=== PATIENT | female | born 1945 | race Caucasian/White ===

== ENCOUNTER 2017-08-27 04:02 | Day surgery (SDC) | payer MEDICAID, MEDICARE ==
[2017-06-17 10:30] VITALS: Wt 53.1 kg
[~2017-08-27 04:02] MED LIST: ACET-2043 PO; ACET500T68 PO; ALB18R INH; ALBU8.5H IH; ARIP2TAB9 PO; ARMO250T5 PO; ASPI-757 PO; BUP100 PO; BUSP15TA69 PO; CEF300 FT; CEF300 PO; CIPR-214 PO; CLIN-75 FT; CLO5 PO; Cefdinir PO; DES100PT PO; DESV50TA PO; DESV50TA9 PO; DIGO125T73 PO; DIGO125T90 PO; DIPH-740 PO; DIPH-741 PO; DOCU-416 PO; DOCU50LI30 FT; FERR325T24 PO; FLUC100T39 PO; FLUC200T56 FT; FLUT16SP19 NS; FLUT16SP20 NS; FURO-45 PO; GUAI-59 PO; HYDR-4225 PO; IPRA15SP7 NS; IPRA3AMP21 IH; LACT PO; LACT-247 FT; LACT-247 PO; LACT-272 PO; LACT1CAP9 PO; LACT1PAC23 PO; LEV500 PO; LEV75 PO; LEVO-85 FT; LEVO-85 PO; LEVO250T55 FT; LEVO75TA68 PO; LEVO75TA73 PO; LEVO88TA45 PO; LORA10CA3 PO; MAGN400C PO; MELO-205 PO; METO-566 PO; METR-1 PO; METR-119 PO; METR-159 PO; METR-160 PO; MODA200T39 PO; MOM PO; MOMR; MULT-839 PO; MULT1CAP59 PO; OMEP40CA48 PO; ONDA4TAB PO; ONDA4TAB9 SL; ONDA4TAB97 PO; OSE75 PO; OXYC-373 PO; OXYC-717 PO; OXYC-857 PO; OXYC-865 PO; OXYC-870 PO; OXYC10TA67 PO; OXYC5TAB38 PO; OXYIR PO; PANT40SU3 FT; PANT40SU3 PO; PANT40TA65 PO; PAR20 PO; PER PO; POLY17PO25 PO; POTA20LI10 FT; POTA20LI10 PO; POTT20 PO; PROM-110 FT; PROM-110 PO; PROM12.556 PO; PROM25SU8 PR; PSE30 PO; RIFA550T PO; RIVA20TA PO; SERT25TA87 PO; SIME80TA49 PO; SIME80TA65 PO; VANC1VIA12 IV; VENL150C61 PO; VENL50TA23 PO; VENL75CA4 PO; VENL75TA98 PO; WARF-1 PO; WARF1TAB56 PO; WARF2.5T62 PO; [UNRECOGNIZED DRUG - CODE] FT; [UNRECOGNIZED DRUG - CODE] VG
[2017-08-27] MEDS ORDERED: PROPOFOL EMUL(*) 10MG/ML 20 ML 40 ML ONE (07:38)
[2017-08-27] MEDS ORDERED: LIDOCAINE MPF 1% 5 ML VIAL ONE (07:38)
[2017-08-27] MEDS ORDERED: LIDOCAINE/SOD BICARB 8.4% SYR ID ONE (08:30)
[2017-08-27] MEDS ORDERED: MIDAZOLAM 2 MG/2 ML VIAL IVP PRN (08:30)
[2017-08-27] MEDS ORDERED: NORMOSOL R SOLN(*) 1000 ML BAG 1,000 ML IV PRN (08:30)
[2017-08-27 08:53] VITALS: BP 109/95
[2017-08-27 10:24] VITALS: BP 113/53
--- NOTE | 2017-08-27 10:34 | Short(Outpt) Discharge Summary ---
Discharge Summary Reason for Hosp/Final Diag: (1) S/P percutaneous endoscopic gastrostomy (PEG) tube placement Status: Chronic Hospital Course & Plan: EGD with balloon dilation of distal esophagus and PEG tube exchange completed without problems. (2) Peptic ulcer disease Status: Chronic Departure Discharge to: Home, Self Care Discharge Instructions Home Meds Active Scripts Rifaximin (XIFAXAN) 550 Mg Tablet, 550 MG PO BID for 90 Days, Prov:MARCO MILLER MD 06/23/17 Multivitamin (TAB-A-DIMA) 1 Each Tablet, 1 EACH PO DAILY, #0 TAB Prov:VIC UREÑA MD 08/21/16 Magnesium Oxide (MAGNESIUM) 400 Mg Capsule, 400 MG PO DAILY, #30 CAPSULE 1 Refill Prov:CATA UREÑA MD 04/24/16 Levothyroxine Sodium (SYNTHROID) 75 Mcg Tablet, 0.075 MG PO QDAY@06, #30 TAB Prov:FREDDIE VOGT MD 04/19/16 Reported Medications Pantoprazole Sodium (PROTONIX) 40 Mg Granpkt.dr, 40 MG PO BID, PACK 06/23/17 Docusate Sodium (COLACE) 100 Mg Capsule, 10 MG PO BID, CAPSULE 05/17/17 Albuterol Sulfate 90 Mcg/Act (PROAIR HFA 90 MCG/ACT) 8.5 Gm Hfa.aer.ad, 1-2 PUFF IH Q2H Y for SHORTNESS OF BREATH, INHALER 05/17/17 Oxycodone Hcl/Acetaminophen (OXYCODONE-ACETAMINOPHEN 5-325) 1 Each Tablet, 1 EACH PO Q4H Y for PAIN, TAB 05/07/17 Ferrous Sulfate (IRON) 325 Mg Tablet, 325 MG PO BID 05/07/17 Hydroxyzine Hcl (HYDROXYZINE HCL) 25 Mg Tablet, 12.5 MG PO BID Y for ITCHING 05/07/17 Magnesium Hydroxide (MILK OF MAGNESIA) 400 Mg/5 Ml Oral.susp, 800 MG PO BID, BOTTLE 05/07/17 Potassium Chloride (POTASSIUM CHLORIDE) 20 Meq/15 Ml Liquid, 20 MEQ PO BID 03/13/17 Acetaminophen (TYLENOL EXTRA STRENGTH) 500 Mg Tablet, 500 MG PO Q4H Y for PAIN, TAB 03/13/17 Simethicone (SIMETHICONE) 80 Mg Tab.chew, 80 MG PO Q6H, TAB.CHEW 03/12/17 Nutritional Supplement (OSMOLITE) 237 Ml Liquid, 1000 ML FT QHS osmolyte 1.5 lona @ 70mL/hr x 12 hours 01/14/17 Fluticasone Prop 50 Mcg Ns (FLONASE 50 MCG NS) 16 Gm [place].susp, 1 SPRAY NS BID , BOT 03/27/16 Diet: Regular Activity: As Tolerated OSEI OLIVEIRA MD Aug 27, 2017 10:34
[2017-08-27 10:45] VITALS: BP 104/67
[2017-08-27 10:56] VITALS: BP 98/64
[2017-08-27 11:23] VITALS: BP 104/64
== END 2017-08-27 12:00 ==
LOC: OR 04:02
PROVIDERS: ATTEND Surgery
DX: K22.2 Esophageal obstruction (principal); K44.9 Diaphragmatic hernia without obstruction or gangrene; K29.70 Gastritis, unspecified, without bleeding
CPT/HCPCS: 43246; 43249; A9270; J2001; J2704

== ENCOUNTER → 2017-09-10 | Outpatient (CLI) | payer MEDICARE ==
[2017-06-17 10:30] VITALS: BMI 18.5
[2017-09-10 10:41] LABS: PLATELET COUNT, AUTOMATED 342 K/uL (150-450)
--- NOTE | 2017-09-10 11:04 | RADIOLOGY IMAGING REPORT ---
FACILITY: [facility] PATIENT NAME: Jane Winkler : 1945 MR: [id number] V: [id number] EXAM DATE: ORDERING PHYSICIAN: LESVIA LARIOS TECHNOLOGIST: Location: [facility] Patient: Jane Winkler : 1945 Visit/Account:[id number] Date of Sevice: 09/10/2017 ABDOMEN AP AND ERECT/DECUB HISTORY: Abdominal pain for two days COMPARISON: CT examination abdomen July 30, 2017 FINDINGS: Mild left basilar atelectasis. Gastric tube is noted Upright view demonstrates no evidence of free air or pneumatosis. Air-fluid levels are noted in the stomach and in nondilated loops of bowel. No acute bony finding. IMPRESSION: 1. Nonspecific bowel gas pattern with air-fluid levels in nondilated loops of bowel. Finding could represent the patient's baseline, ileus or enteritis. No evidence of high-grade obstruction, pneumat osis or free air. Report Dictated By: Shant De Anda MD at 09/10/2017 10:55 AM Report E-Signed By: Shant De Anda MD at 09/10/2017 10:59 AM WSN:[id number]
== END ==
LOC: LAB 10:06
PROVIDERS: ATTEND Family Medicine
DX: R11.2 Nausea with vomiting, unspecified (principal)
CPT/HCPCS: 36415; 74019; 82040; 82247; 82310; 82374; 82435; 82565; 82947; 84075; 84132; 84155; 84295; 84450; 84460; 84520; 85025

== ENCOUNTER → 2017-11-05 | Outpatient (REF) | payer MEDICARE ==
[2017-06-17 10:30] VITALS: BMI 18.5
== END ==
LOC: ZZLCC 20:06
PROVIDERS: ATTEND Family Medicine
DX: R30.9 Painful micturition, unspecified (principal)
CPT/HCPCS: 81001; 87088

== ENCOUNTER → 2017-11-18 | Outpatient (REF) | payer MEDICARE ==
[2017-06-17 10:30] VITALS: BMI 18.5
== END ==
LOC: ZZLCC 11:25
PROVIDERS: ATTEND Family Medicine
DX: N39.0 Urinary tract infection, site not specified (principal)
CPT/HCPCS: 81001; 87088

== ENCOUNTER 2017-11-20 12:47 | Emergency (ER) | payer MEDICARE ==
[2017-06-17 10:30] VITALS: Wt 53.2 kg
--- NOTE | 2017-11-20 13:06 | ER Report ---
History and Physical Time Seen By MD: 13:04 HPI/ROS CHIEF COMPLAINT: Tube dislodged HISTORY OF PRESENT ILLNESS: 71-year-old female history of G-tube placement for feeding purposes and is under concerned that the tube had displaced here for emergent evaluation no pain or discomfort REVIEW OF SYSTEMS: Respiratory: No cough, no dyspnea. Cardiovascular: No chest pain, no palpitations. Gastrointestinal: No vomiting, no abdominal pain. Musculoskeletal: No back pain. Remainder of the 14 system rev: Yes Allergies: Coded Allergies: propoxyphene (Verified Allergy, Mild, 06/16/17) Penicillins (Verified Allergy, Unknown, 06/16/17) had ceftriaxone in the past w/o problems Sulfa (Sulfonamide Antibiotics) (Verified Allergy, Unknown, 06/16/17) codeine (Verified Allergy, Unknown, 06/16/17) tetracycline (Verified Allergy, Unknown, 06/16/17) HAS TAKEN TIGECYCLINE IN THE PAST W/O PROBLEMS Home Meds Active Scripts Multivitamin (TAB-A-DIMA) 1 Each Tablet, 1 EACH PO DAILY, #0 TAB Prov:VIC UREÑA MD 08/21/16 Magnesium Oxide (MAGNESIUM) 400 Mg Capsule, 400 MG PO DAILY, #30 CAPSULE 1 Refill Prov:CATA UREÑA MD 04/24/16 Levothyroxine Sodium (SYNTHROID) 75 Mcg Tablet, 0.075 MG PO QDAY@06, #30 TAB Prov:FREDDIE VOGT MD 04/19/16 Reported Medications Ondansetron (ZOFRAN ODT) 4 Mg Tab.rapdis, 4 MG PO Q12H, TAB.TYRONE 11/20/17 Ceftriaxone Sod 250 Mg Vial (CEFTRIAXONE 250 MG VIAL) 250 Mg Vial, 1000 MG IJ QDAY, VIAL 11/20/17 Ranitidine Hcl (ZANTAC) 150 Mg Tablet, 150 MG PO QDAY, TAB 11/20/17 Loratadine (CLARITIN) 10 Mg Capsule, 10 MG PO, CAPSULE 11/20/17 Ciprofloxacin Hcl (CIPROFLOXACIN HCL) 500 Mg Tablet, 250 MG PO QDAY, #14 TAB 11/20/17 Pantoprazole Sodium (PROTONIX) 40 Mg Granpkt.dr, 40 MG PO BID, PACK 06/23/17 Docusate Sodium (COLACE) 100 Mg Capsule, 10 MG PO BID, CAPSULE 05/17/17 Albuterol Sulfate 90 Mcg/Act (PROAIR HFA 90 MCG/ACT) 8.5 Gm Hfa.aer.ad, 1-2 PUFF IH Q2H Y for SHORTNESS OF BREATH, INHALER 05/17/17 Oxycodone Hcl/Acetaminophen (OXYCODONE-ACETAMINOPHEN 5-325) 1 Each Tablet, 1 EACH PO Q4H Y for PAIN, TAB 05/07/17 Ferrous Sulfate (IRON) 325 Mg Tablet, 325 MG PO BID 05/07/17 Hydroxyzine Hcl (HYDROXYZINE HCL) 25 Mg Tablet, 12.5 MG PO BID Y for ITCHING 05/07/17 Magnesium Hydroxide (MILK OF MAGNESIA) 400 Mg/5 Ml Oral.susp, 800 MG PO BID, BOTTLE 05/07/17 Potassium Chloride (POTASSIUM CHLORIDE) 20 Meq/15 Ml Liquid, 20 MEQ PO BID 03/13/17 Acetaminophen (TYLENOL EXTRA STRENGTH) 500 Mg Tablet, 500 MG PO Q4H Y for PAIN, TAB 03/13/17 Simethicone (SIMETHICONE) 80 Mg Tab.chew, 80 MG PO Q6H, TAB.CHEW 03/12/17 Nutritional Supplement (OSMOLITE) 237 Ml Liquid, 1000 ML FT QHS osmolyte 1.5 lona @ 70mL/hr x 12 hours 01/14/17 Fluticasone Prop 50 Mcg Ns (FLONASE 50 MCG NS) 16 Gm [place].susp, 1 SPRAY NS BID , BOT 03/27/16 Discontinued Scripts Rifaximin (XIFAXAN) 550 Mg Tablet, 550 MG PO BID for 90 Days, Prov:MARCO MILLER MD 06/23/17 Reviewed Nurses Notes: Yes Old Medical Records Reviewed: Yes Hx Smoking: No Smoking Status: Never Smoker Exposure to Second Hand Smoke?: No Hx Substance Use Disorder: No Hx Alcohol Use: No Constitutional Vital Sign - Last 24 Hours 11/20/17 11/20/17 11/20/17 11/20/17 13:02 13:04 13:17 13:32 Temp 97.7 Pulse 58 ??? 54 Resp 16 B/P (MAP) 115/65 115/65 (82) Pulse Ox 94 94 99 O2 Delivery Room Air 11/20/17 11/20/17 11/20/17 13:47 14:02 14:03 Pulse ??? 54 B/P (MAP) 105/70 (82) Pulse Ox 98 Physical Exam General Appearance: The patient is alert, has no immediate need for airway protection and no current signs of toxicity. [ ] Eyes: Pupils equal and round no injection. Respiratory: Chest is non tender, lungs are clear to auscultation. Cardiac: regular rate and rhythm [ ] Gastrointestinal: Abdomen examination shows a G-tube with some mild serous effusion placed not secured normal bowel sounds otherwise unremarkable Musculoskeletal: Neck: Neck is supple and non tender. Extremities have full range of motion and are non tender. Skin: No rashes or lesions. [ ] DIFFERENTIAL DIAGNOSIS: After history and physical exam differential diagnosis was considered for G-tube displacement Medical Decision Making ED Course/Re-evaluation ED Course Medical course medical decision asymmetry of female presented for verification of the G-tube displacement is actually G-tube (verified on x-ray with Gastrografin patient discharge diagnoses proper tube placement Decision to Disposition Date: Nov 20, 2017 Decision to Disposition Time: 14:35 Depart Departure Latest Vital Signs Vital Signs Date Time Temp Pulse Resp B/P (MAP) Pulse Ox O2 Delivery O2 Flow Rate FiO2 11/20/17 14:03 105/70 (82) 11/20/17 14:02 54 98 11/20/17 13:02 97.7 16 Room Air Core Temperature (Celsius): 36.2 Impression: Primary Impression: Feeding tube dysfunction Condition: Improved Disposition: HOME OR SELF-CARE Referrals: LESVIA LARIOS DO (PCP) 5 Days Patient Instructions: Tube Feeding (DC) RENEE HIGH MD Nov 20, 2017 13:06
[2017-11-20] MEDS ORDERED: DIATRIZOATE MEGL/DIATRIZOA SOD 367 MG/ML SOLN ONE (13:20)
[2017-11-20] MEDS ORDERED: LORA10CA3 PO (13:40)
[2017-11-20] MEDS ORDERED: CIPR-214 PO (13:40)
[2017-11-20] MEDS ORDERED: ONDA4TAB PO (13:48)
[2017-11-20] MEDS ORDERED: CEFT250V36 IJ (13:48)
[2017-11-20] MEDS ORDERED: RANI-366 PO (13:48)
--- NOTE | 2017-11-20 14:20 | RADIOLOGY IMAGING REPORT ---
FACILITY: [facility] PATIENT NAME: Jane Winkler : 1945 MR: [id number] V: [id number] EXAM DATE: ORDERING PHYSICIAN: RENEE HIGH TECHNOLOGIST: Location: [facility] [place] Patient: Jane Winkler : 1945 Visit/Account:[id number] Date of Sevice: 11/20/2017 Exam type: KUB SINGLE VIEW ABDOMEN History: tube placement Comparison: September 10, 2017. . Findings: Gastrostomy tube projects over the right upper quadrant of abdomen. Small amount of Gastrografin was instilled into the tube which appear to be positioned within the duodenal bulb. The contrast did fl ow downstream into the second third and fourth portions of the duodenum. IMPRESSION: 1. Gastrostomy tube appears to be positioned within the duodenal bulb Report Dictated By: Sabrina Banegas MD at 11/20/2017 2:15 PM Report E-Signed By: Sabrina Banegas MD at 11/20/2017 2:17 PM WSN:[email or web address]
== END 2017-11-20 15:30 | disposition home or self-care (01) ==
LOC: ER 12:48
DX: K94.23 Gastrostomy malfunction (principal)
CPT/HCPCS: 74018; 99282

== ENCOUNTER 2017-11-24 21:47 | Emergency (ER) | payer MEDICARE ==
[2017-06-17 10:30] VITALS: Wt 53.5 kg
--- NOTE | 2017-11-24 21:51 | ER Report ---
History and Physical Time Seen By MD: 21:50 HPI/ROS CHIEF COMPLAINT: Pulled out feeding tube HISTORY OF PRESENT ILLNESS: 71-year-old female sent from [facility] for replacement of feeding tube. Apparently was pulled out earlier. REVIEW OF SYSTEMS: Respiratory: No cough, no dyspnea. Cardiovascular: No chest pain, no palpitations. Gastrointestinal: No vomiting, no abdominal pain. Musculoskeletal: No back pain. Allergies: Coded Allergies: propoxyphene (Verified Allergy, Mild, 11/25/17) Penicillins (Verified Allergy, Unknown, 11/25/17) had ceftriaxone in the past w/o problems Sulfa (Sulfonamide Antibiotics) (Verified Allergy, Unknown, 11/25/17) codeine (Verified Allergy, Unknown, 11/25/17) tetracycline (Verified Allergy, Unknown, 11/25/17) HAS TAKEN TIGECYCLINE IN THE PAST W/O PROBLEMS Home Meds Active Scripts Multivitamin (TAB-A-DIMA) 1 Each Tablet, 1 EACH PO DAILY, #0 TAB Prov:VIC UREÑA MD 08/21/16 Magnesium Oxide (MAGNESIUM) 400 Mg Capsule, 400 MG PO DAILY, #30 CAPSULE 1 Refill Prov:CATA UREÑA MD 04/24/16 Levothyroxine Sodium (SYNTHROID) 75 Mcg Tablet, 0.075 MG PO QDAY@06, #30 TAB Prov:FREDDIE VOGT MD 04/19/16 Reported Medications Ondansetron (ZOFRAN ODT) 4 Mg Tab.rapdis, 4 MG PO Q12H, TAB.TYRONE 11/20/17 Ceftriaxone Sod 250 Mg Vial (CEFTRIAXONE 250 MG VIAL) 250 Mg Vial, 1000 MG IJ QDAY, VIAL 11/20/17 Ranitidine Hcl (ZANTAC) 150 Mg Tablet, 150 MG PO QDAY, TAB 11/20/17 Loratadine (CLARITIN) 10 Mg Capsule, 10 MG PO, CAPSULE 11/20/17 Ciprofloxacin Hcl (CIPROFLOXACIN HCL) 500 Mg Tablet, 250 MG PO QDAY, #14 TAB 11/20/17 Pantoprazole Sodium (PROTONIX) 40 Mg Granpkt.dr, 40 MG PO BID, PACK 06/23/17 Docusate Sodium (COLACE) 100 Mg Capsule, 10 MG PO BID, CAPSULE 05/17/17 Albuterol Sulfate 90 Mcg/Act (PROAIR HFA 90 MCG/ACT) 8.5 Gm Hfa.aer.ad, 1-2 PUFF IH Q2H Y for SHORTNESS OF BREATH, INHALER 05/17/17 Oxycodone Hcl/Acetaminophen (OXYCODONE-ACETAMINOPHEN 5-325) 1 Each Tablet, 1 EACH PO Q4H Y for PAIN, TAB 05/07/17 Ferrous Sulfate (IRON) 325 Mg Tablet, 325 MG PO BID 05/07/17 Hydroxyzine Hcl (HYDROXYZINE HCL) 25 Mg Tablet, 12.5 MG PO BID Y for ITCHING 05/07/17 Magnesium Hydroxide (MILK OF MAGNESIA) 400 Mg/5 Ml Oral.susp, 800 MG PO BID, BOTTLE 05/07/17 Potassium Chloride (POTASSIUM CHLORIDE) 20 Meq/15 Ml Liquid, 20 MEQ PO BID 03/13/17 Acetaminophen (TYLENOL EXTRA STRENGTH) 500 Mg Tablet, 500 MG PO Q4H Y for PAIN, TAB 03/13/17 Simethicone (SIMETHICONE) 80 Mg Tab.chew, 80 MG PO Q6H, TAB.CHEW 03/12/17 Nutritional Supplement (OSMOLITE) 237 Ml Liquid, 1000 ML FT QHS osmolyte 1.5 lona @ 70mL/hr x 12 hours 01/14/17 Fluticasone Prop 50 Mcg Ns (FLONASE 50 MCG NS) 16 Gm [place].susp, 1 SPRAY NS BID , BOT 03/27/16 Discontinued Scripts Rifaximin (XIFAXAN) 550 Mg Tablet, 550 MG PO BID for 90 Days, Prov:MARCO MILLER MD 06/23/17 Reviewed Nurses Notes: Yes Old Medical Records Reviewed: Yes Hx Smoking: No Smoking Status: Never Smoker Exposure to Second Hand Smoke?: No Hx Substance Use Disorder: No Hx Alcohol Use: No Constitutional Vital Sign - Last 24 Hours 11/24/17 11/24/17 11/24/17 11/24/17 21:49 22:00 22:02 22:17 Temp 99.1 Pulse 81 85 81 Resp 16 B/P (MAP) 116/69 110/74 (86) Pulse Ox 92 94 95 O2 Delivery Room Air 11/24/17 11/24/17 22:30 22:32 Pulse 83 B/P (MAP) 110/76 (87) Pulse Ox 96 Physical Exam General Appearance: The patient is alert, has no immediate need for airway protection and no current signs of toxicity. Vital signs stable, afebrile, pulse ox normal Eyes: Pupils equal and round no injection. Respiratory: Chest is non tender, lungs are clear to auscultation. Cardiac: regular rate and rhythm Gastrointestinal: Abdomen is soft and non tender, there is a PEG tube site in the right upper quadrant. A PEG tube was reinserted in the site and wound was inflated with 10 mL of saline. Gastric contents were aspirated. No masses, bowel sounds normal. Musculoskeletal: Neck: Neck is supple and non tender. Extremities have full range of motion and are non tender. Skin: No rashes or lesions. DIFFERENTIAL DIAGNOSIS: After history and physical exam differential diagnosis was considered for PEG tube dislodgment, Medical Decision Making ED Course/Re-evaluation ED Course Patient was admitted to an examination room. H&P was done. The differential diagnoses was considered. On clinical examination. Patient has a missing. The PEG tube, site appears intact. There is no evidence of trauma. PEG tube was reinserted as noted. Tolerated the procedure well. Patient be returned to the intermediate. Decision to Disposition Date: Nov 24, 2017 Decision to Disposition Time: 22:33 Depart Departure Latest Vital Signs Vital Signs Date Time Temp Pulse Resp B/P (MAP) Pulse Ox O2 Delivery O2 Flow Rate FiO2 11/24/17 22:32 83 96 11/24/17 22:30 110/76 (87) 11/24/17 21:49 99.1 16 Room Air Core Temperature (Celsius): 36.2 Impression: Primary Impression: Encounter for feeding tube placement Additional Impression: Nausea alone Condition: Improved Disposition: HOME OR SELF-CARE Referrals: LESVIA LARIOS DO (PCP) Patient Instructions: Tube Feeding (GEN) Additional Instructions: Return to intermediate, resume previous orders Problem Qualifiers PERRY RANKIN DO Nov 24, 2017 21:51
[2017-11-24] MEDS ORDERED: ONDANSETRON 4 MG ODT TABDP SL ONE (21:55)
[2017-11-24 22:30] VITALS: BP 110/76
== END 2017-11-24 22:41 | disposition home or self-care (01) ==
LOC: ER 21:57
DX: K94.29 Other complications of gastrostomy (principal); R11.0 Nausea
CPT/HCPCS: 99283; Q0162; S0119

== ENCOUNTER → 2017-11-24 | Outpatient (CLI) | payer MEDICARE ==
[2017-06-17 10:30] VITALS: BMI 18.5
[~2017-11-24] MED LIST changes: +CEFT250V36 IJ; +RANI-366 PO
== END ==
LOC: AMB 21:30
PROVIDERS: ATTEND Nurse Practitioner
DX: K94.23 Gastrostomy malfunction (principal)
CPT/HCPCS: A0425; A0429

== ENCOUNTER → 2017-11-24 | Outpatient (CLI) | payer MEDICARE ==
[2017-06-17 10:30] VITALS: BMI 18.5
== END ==
LOC: AMB 22:51
PROVIDERS: ATTEND Nurse Practitioner
DX: Z76.89 Persons encountering health services in other specified circumstances (principal)
CPT/HCPCS: A0425; A0428

== ENCOUNTER → 2017-12-28 | Outpatient (REF) | payer MEDICARE ==
[2017-06-17 10:30] VITALS: BMI 18.5
== END ==
LOC: ZZSENDIN 13:44
PROVIDERS: ATTEND Family Medicine
DX: Z02.9 Encounter for administrative examinations, unspecified (principal)
CPT/HCPCS: 81001; 87088

== ENCOUNTER → 2017-12-31 | Outpatient (REF) | payer MEDICARE ==
[2017-06-17 10:30] VITALS: BMI 18.5
== END ==
LOC: ZZLCC 17:20
PROVIDERS: ATTEND Family Medicine
DX: R10.9 Unspecified abdominal pain (principal)
CPT/HCPCS: 82040; 82247; 82310; 82374; 82435; 82565; 82947; 84075; 84132; 84155; 84295; 84450; 84460; 84520; 85027

== ENCOUNTER → 2018-01-01 | Outpatient (REF) | payer MEDICARE ==
[2017-06-17 10:30] VITALS: BMI 18.5
== END ==
LOC: ZZLCC 06:58
PROVIDERS: ATTEND Family Medicine
DX: E86.0 Dehydration (principal); R10.9 Unspecified abdominal pain
CPT/HCPCS: 82040; 82247; 82310; 82374; 82435; 82565; 82947; 84075; 84132; 84155; 84295; 84450; 84460; 84520; 85027

== ENCOUNTER → 2018-01-02 | Outpatient (REF) | payer MEDICARE ==
[2017-06-17 10:30] VITALS: BMI 18.5
== END ==
LOC: ZZLCC 07:44
PROVIDERS: ATTEND Family Medicine
DX: E87.1 Hypo-osmolality and hyponatremia (principal)
CPT/HCPCS: 82040; 82247; 82310; 82374; 82435; 82565; 82947; 84075; 84132; 84155; 84295; 84450; 84460; 84520

== ENCOUNTER → 2018-01-05 | Outpatient (REF) | payer MEDICARE ==
[2017-06-17 10:30] VITALS: BMI 18.5
== END ==
LOC: ZZLCC 14:39
PROVIDERS: ATTEND Family Medicine
DX: E87.1 Hypo-osmolality and hyponatremia (principal)
CPT/HCPCS: 82310; 82374; 82435; 82565; 82947; 84132; 84295; 84520

== ENCOUNTER → 2018-01-07 | Outpatient (REF) | payer MEDICARE ==
[2017-06-17 10:30] VITALS: BMI 18.5
== END ==
LOC: ZZSENDIN 06:43
PROVIDERS: ATTEND Family Medicine
DX: E87.0 Hyperosmolality and hypernatremia (principal)
CPT/HCPCS: 82310; 82374; 82435; 82565; 82947; 84132; 84295; 84520

== ENCOUNTER 2018-01-09 19:49 | Emergency (ER) | payer MEDICARE ==
[2017-06-17 10:30] VITALS: Wt 40.8 kg
--- NOTE | 2018-01-09 19:56 | ER Report ---
History and Physical Time Seen By MD: 19:56 HPI/ROS CHIEF COMPLAINT: abnormal labs HISTORY OF PRESENT ILLNESS: This is a 72 year old female. She was sent to the ER from [facility] because of a low potassium and sodium level from today. Her Sodium was 134 and her potassium was 2.8. She is asymptomatic. She is unsure why she is here. Nursing at the [facility] tried to contact her PCP, who was not available. The supervising physician for the [facility] had them send her here. She denies any pain, including chest pain. No shortness of breath. Allergies: Coded Allergies: propoxyphene (Verified Allergy, Mild, 11/25/17) Penicillins (Verified Allergy, Unknown, 11/25/17) had ceftriaxone in the past w/o problems Sulfa (Sulfonamide Antibiotics) (Verified Allergy, Unknown, 11/25/17) codeine (Verified Allergy, Unknown, 11/25/17) tetracycline (Verified Allergy, Unknown, 11/25/17) HAS TAKEN TIGECYCLINE IN THE PAST W/O PROBLEMS Home Meds Active Scripts Multivitamin (TAB-A-DIMA) 1 Each Tablet, 1 EACH PO DAILY, #0 TAB Prov:VIC UREÑA MD 08/21/16 Magnesium Oxide (MAGNESIUM) 400 Mg Capsule, 400 MG PO DAILY, #30 CAPSULE 1 Refill Prov:CATA UREÑA MD 04/24/16 Levothyroxine Sodium (SYNTHROID) 75 Mcg Tablet, 0.075 MG PO QDAY@06, #30 TAB Prov:FREDDIE VOGT MD 04/19/16 Reported Medications Ondansetron (ZOFRAN ODT) 4 Mg Tab.rapdis, 4 MG PO Q12H, TAB.TYRONE 11/20/17 Ceftriaxone Sod 250 Mg Vial (CEFTRIAXONE 250 MG VIAL) 250 Mg Vial, 1000 MG IJ QDAY, VIAL 11/20/17 Ranitidine Hcl (ZANTAC) 150 Mg Tablet, 150 MG PO QDAY, TAB 11/20/17 Loratadine (CLARITIN) 10 Mg Capsule, 10 MG PO, CAPSULE 11/20/17 Ciprofloxacin Hcl (CIPROFLOXACIN HCL) 500 Mg Tablet, 250 MG PO QDAY, #14 TAB 11/20/17 Pantoprazole Sodium (PROTONIX) 40 Mg Granpkt.dr, 40 MG PO BID, PACK 06/23/17 Docusate Sodium (COLACE) 100 Mg Capsule, 10 MG PO BID, CAPSULE 05/17/17 Albuterol Sulfate 90 Mcg/Act (PROAIR HFA 90 MCG/ACT) 8.5 Gm Hfa.aer.ad, 1-2 PUFF IH Q2H Y for SHORTNESS OF BREATH, INHALER 05/17/17 Oxycodone Hcl/Acetaminophen (OXYCODONE-ACETAMINOPHEN 5-325) 1 Each Tablet, 1 EACH PO Q4H Y for PAIN, TAB 05/07/17 Ferrous Sulfate (IRON) 325 Mg Tablet, 325 MG PO BID 05/07/17 Hydroxyzine Hcl (HYDROXYZINE HCL) 25 Mg Tablet, 12.5 MG PO BID Y for ITCHING 05/07/17 Magnesium Hydroxide (MILK OF MAGNESIA) 400 Mg/5 Ml Oral.susp, 800 MG PO BID, BOTTLE 05/07/17 Potassium Chloride (POTASSIUM CHLORIDE) 20 Meq/15 Ml Liquid, 20 MEQ PO BID 03/13/17 Acetaminophen (TYLENOL EXTRA STRENGTH) 500 Mg Tablet, 500 MG PO Q4H Y for PAIN, TAB 03/13/17 Simethicone (SIMETHICONE) 80 Mg Tab.chew, 80 MG PO Q6H, TAB.CHEW 03/12/17 Nutritional Supplement (OSMOLITE) 237 Ml Liquid, 1000 ML FT QHS osmolyte 1.5 lona @ 70mL/hr x 12 hours 01/14/17 Fluticasone Prop 50 Mcg Ns (FLONASE 50 MCG NS) 16 Gm [place].susp, 1 SPRAY NS BID , BOT 03/27/16 Reviewed Nurses Notes: Yes Hx Smoking: No Smoking Status: Never Smoker Exposure to Second Hand Smoke?: No Hx Substance Use Disorder: No Hx Alcohol Use: No Constitutional Vital Sign - Last 24 Hours 01/09/18 01/09/18 01/09/18 01/09/18 19:49 19:59 20:00 20:05 Temp 99.2 Pulse 73 75 74 Resp 18 10 B/P (MAP) 78/58 83/52 (62) Pulse Ox 90 90 O2 Delivery Room Air 01/09/18 01/09/18 01/09/18 01/09/18 20:30 20:35 21:00 21:05 Pulse 74 74 Resp 10 13 B/P (MAP) 82/48 (59) 73/54 (60) Pulse Ox 88 89 01/09/18 01/09/18 01/09/18 01/09/18 21:30 21:35 21:40 22:00 Pulse 73 69 Resp 17 16 B/P (MAP) 81/59 (66) 120/101 (107) Pulse Ox 92 88 01/09/18 01/09/18 22:10 22:30 Pulse 72 Resp 18 B/P (MAP) 76/54 (61) Pulse Ox 91 Physical Exam General Appearance: The patient is alert, has no immediate need for airway protection and no current signs of toxicity. Eyes: Pupils equal and round no injection. ENT: Normal oral mucosa. Moist mucous membranes. Respiratory: Lungs are clear to auscultation. Cardiac: regular rate and rhythm Gastrointestinal: Abdomen is soft and non tender, no masses, bowel sounds normal. Musculoskeletal: No musculoskeletal pain at this time. DIFFERENTIAL DIAGNOSIS: After history and physical exam differential diagnosis was considered for hyponatremia and hypokalemia. Will get an EKG and give a liter of normal saline and a 20mEq KCl rider. Medical Decision Making EKG/Imaging EKG Interpretation 12 lead EKG: Rhythm: normal sinus rhythm, rate 77 [place]: normal QRS: normal ST segments: Nonspecific flattening, no ST elevation or depression ED Course/Re-evaluation Clinical Indication for ER IV: Hydration, IV Access ED Course After evaluation, EKG is negative. Patient was given a liter of normal saline through her port with a 20 mEq potassium chloride rider. Remains asymptomatic. Feeding tube site dressing changed. Decision to Disposition Date: Jan 09, 2018 Decision to Disposition Time: 22:31 Depart Departure Latest Vital Signs Vital Signs Date Time Temp Pulse Resp B/P (MAP) Pulse Ox O2 Delivery O2 Flow Rate FiO2 01/09/18 22:30 76/54 (61) 01/09/18 22:10 72 18 91 01/09/18 19:59 99.2 Room Air Core Temperature (Celsius): 36.2 Impression: Primary Impression: Hypokalemia Additional Impression: Hyponatremia Condition: Improved Disposition: HOME OR SELF-CARE Referrals: LESVIA LARIOS DO (PCP) Patient Instructions: Hypokalemia (ED), Hyponatremia (ED) Additional Instructions: The patient will need to have a repeat basic metabolic panel done on Friday or Friday. No other changes to medications. She will need to continue her BID potassium supplement. She should see her PCP in the next 1-2 weeks. Problem Qualifiers JACOBY BERNSTEIN MD Jan 09, 2018 19:56
[2018-01-09] MEDS ORDERED: NS(*) 0.9% 1000 ML BAG 1,000 ML IV ONE (20:10)
[2018-01-09] MEDS ORDERED: KCL (*) 20 MEQ/100 ML PREMIX 100 ML IV ONE (20:10)
--- NOTE | 2018-01-09 20:35 | EKG ---
FACILITY: [facility] [place] PATIENT NAME: ACOSTA COCHRAN : [id number] MR: [id number] V: [id number] EXAM DATE: ORDERING PHYSICIAN: JACOBY BERNSTEIN TECHNOLOGIST: JAMIL Test Reason : Blood Pressure : / mmHG Vent. Rate : 077 BPM Atrial Rate : 077 BPM P-R Int : 158 ms QRS Dur : 068 ms QT Int : 386 ms P-R-T Axes : 012 054 045 degrees QTc Int : 436 ms Normal sinus rhythm Normal ECG Confirmed by VIC BOSWELL ([id number]) on 01/10/2018 6:30:14 AM Referred By: AMANDEEP Confirmed By:VIC BOSWELL
[2018-01-09 22:30] VITALS: BP 76/54
== END 2018-01-09 23:13 | disposition home or self-care (01) ==
LOC: ER 20:00
DX: E87.6 Hypokalemia (principal); E87.1 Hypo-osmolality and hyponatremia
CPT/HCPCS: 93005; 96365; 99283; J3480; J7030; 82040; 82247; 82310; 82374; 82435; 82565; 82947; 84075; 84132; 84155; 84295; 84450; 84460; 84520; 99284

== ENCOUNTER → 2018-01-09 | Outpatient (CLI) | payer MEDICARE ==
[2017-06-17 10:30] VITALS: BMI 18.5
== END ==
LOC: AMB 19:26
PROVIDERS: ATTEND Nurse Practitioner
DX: E87.5 Hyperkalemia (principal); Z74.01 Bed confinement status
CPT/HCPCS: A0425; A0429

== ENCOUNTER → 2018-01-09 | Outpatient (REF) | payer MEDICARE ==
[2017-06-17 10:30] VITALS: BMI 18.5
== END ==
LOC: ZZLCC 17:36
PROVIDERS: ATTEND Family Medicine
DX: E87.0 Hyperosmolality and hypernatremia (principal)
CPT/HCPCS: 82040; 82247; 82310; 82374; 82435; 82565; 82947; 84075; 84132; 84155; 84295; 84450; 84460; 84520

== ENCOUNTER → 2018-01-09 | Outpatient (CLI) | payer MEDICARE ==
[2017-06-17 10:30] VITALS: BMI 18.5
== END ==
LOC: AMB 23:06
PROVIDERS: ATTEND Nurse Practitioner
DX: E87.5 Hyperkalemia (principal)
CPT/HCPCS: A0425; A0428

== ENCOUNTER → 2018-01-12 | Outpatient (REF) | payer MEDICARE ==
[2017-06-17 10:30] VITALS: BMI 18.5
== END ==
LOC: ZZLCC 10:53
PROVIDERS: ATTEND Family Medicine
DX: E87.1 Hypo-osmolality and hyponatremia (principal)
CPT/HCPCS: 82310; 82374; 82435; 82565; 82947; 84132; 84295; 84520

== ENCOUNTER 2018-01-15 16:50 | Emergency (ER) | payer MEDICARE ==
[2017-06-17 10:30] VITALS: Wt 40.9 kg
[2018-01-15] MEDS ORDERED: ONDANSETRON 4 MG/2 ML VIAL IVP ONE (17:00)
[2018-01-15] MEDS ORDERED: NS(*) 0.9% 500 ML BAG 500 ML IV ONE (17:00)
--- NOTE | 2018-01-15 17:00 | ER Report ---
History and Physical Time Seen By MD: 16:53 HPI/ROS CHIEF COMPLAINT: Abnormal labs, abdominal pain, dizziness HISTORY OF PRESENT ILLNESS: 72-year-old female patient presents to emergency room with complaint of abnormal labs, abdominal pain and is she was at the care home where she lives. She was feeling lightheaded. She had a normal lab draw done this morning. The care home was contacted with results and she was sent up here. Patient states she has a little bit of abdominal discomfort and has some dizziness. She states that she is typically improved when she drinks. She denies any syncopal episodes. She denies having any nausea, vomiting. Patient has been taking her normal medications. REVIEW OF SYSTEMS: Respiratory: No cough, no dyspnea. Cardiovascular: No chest pain, no palpitations. Gastrointestinal: As noted above Musculoskeletal: No back pain. Allergies: Coded Allergies: propoxyphene (Verified Allergy, Mild, 11/25/17) Penicillins (Verified Allergy, Unknown, 11/25/17) had ceftriaxone in the past w/o problems Sulfa (Sulfonamide Antibiotics) (Verified Allergy, Unknown, 11/25/17) codeine (Verified Allergy, Unknown, 11/25/17) tetracycline (Verified Allergy, Unknown, 11/25/17) HAS TAKEN TIGECYCLINE IN THE PAST W/O PROBLEMS Home Meds Active Scripts Magnesium Oxide (MAGNESIUM) 400 Mg Capsule, 400 MG PO DAILY, #30 CAPSULE 1 Refill Prov:CATA UREÑA MD 04/24/16 Levothyroxine Sodium (SYNTHROID) 75 Mcg Tablet, 0.075 MG PO QDAY@06, #30 TAB Prov:FREDIDE VOGT MD 04/19/16 Reported Medications Ondansetron (ZOFRAN ODT) 4 Mg Tab.rapdis, 4 MG PO Q12H, TAB.TYRONE 11/20/17 Ranitidine Hcl (ZANTAC) 150 Mg Tablet, 150 MG PO QDAY, TAB 11/20/17 Loratadine (CLARITIN) 10 Mg Capsule, 10 MG PO, CAPSULE 11/20/17 Ciprofloxacin Hcl (CIPROFLOXACIN HCL) 500 Mg Tablet, 250 MG PO QDAY, #14 TAB 11/20/17 Pantoprazole Sodium (PROTONIX) 40 Mg Granpkt.dr, 40 MG PO BID, PACK 06/23/17 Albuterol Sulfate 90 Mcg/Act (PROAIR HFA 90 MCG/ACT) 8.5 Gm Hfa.aer.ad, 1-2 PUFF IH Q2H Y for SHORTNESS OF BREATH, INHALER 05/17/17 Oxycodone Hcl/Acetaminophen (OXYCODONE-ACETAMINOPHEN 5-325) 1 Each Tablet, 1 EACH PO Q4H Y for PAIN, TAB 05/07/17 Ferrous Sulfate (IRON) 325 Mg Tablet, 325 MG PO BID 05/07/17 Hydroxyzine Hcl (HYDROXYZINE HCL) 25 Mg Tablet, 12.5 MG PO BID Y for ITCHING 05/07/17 Magnesium Hydroxide (MILK OF MAGNESIA) 400 Mg/5 Ml Oral.susp, 800 MG PO BID, BOTTLE 05/07/17 Potassium Chloride (POTASSIUM CHLORIDE) 20 Meq/15 Ml Liquid, 20 MEQ PO BID 03/13/17 Acetaminophen (TYLENOL EXTRA STRENGTH) 500 Mg Tablet, 500 MG PO Q4H Y for PAIN, TAB 03/13/17 Simethicone (SIMETHICONE) 80 Mg Tab.chew, 80 MG PO Q6H, TAB.CHEW 03/12/17 Nutritional Supplement (OSMOLITE) 237 Ml Liquid, 1000 ML FT QHS osmolyte 1.5 lona @ 70mL/hr x 12 hours 01/14/17 Fluticasone Prop 50 Mcg Ns (FLONASE 50 MCG NS) 16 Gm [place].susp, 1 SPRAY NS BID , BOT 03/27/16 Discontinued Reported Medications Ceftriaxone Sod 250 Mg Vial (CEFTRIAXONE 250 MG VIAL) 250 Mg Vial, 1000 MG IJ QDAY, VIAL 11/20/17 Docusate Sodium (COLACE) 100 Mg Capsule, 10 MG PO BID, CAPSULE 05/17/17 Discontinued Scripts Multivitamin (TAB-A-DIMA) 1 Each Tablet, 1 EACH PO DAILY, #0 TAB Prov:VIC UREÑA MD 08/21/16 Past Medical/Surgical History Patient has a past medical history of dementia, DVT, asthma, Mercado pouch, fibromyalgia, arthritis, back pain, hypothyroidism, depression. Patient has surgical history of cholecystectomy, colectomy, ileostomy, left ovary removed, hysterectomy, cataract surgery, left breast mass removed. Patient has a family medical history of cancer, CAD, diabetes, psychiatric problems. Reviewed Nurses Notes: Yes Hx Smoking: No Smoking Status: Never Smoker Exposure to Second Hand Smoke?: No Hx Substance Use Disorder: No Hx Alcohol Use: No Constitutional Vital Sign - Last 24 Hours 01/15/18 01/15/18 01/15/18 01/15/18 16:52 17:00 17:15 17:30 Temp 98.4 Pulse 75 75 74 74 Resp 16 21 8 8 B/P (MAP) 121/93 90/48 (62) 97/86 (90) Pulse Ox 97 96 95 O2 Delivery Nasal Cannula 01/15/18 01/15/18 01/15/18 01/15/18 17:45 18:00 18:15 18:30 Pulse 69 68 67 65 Resp 11 10 11 13 B/P (MAP) 98/58 (71) 83/58 (66) Pulse Ox 96 95 96 97 01/15/18 18:39 O2 Flow Rate 3.0 Intake and Output 01/15/18 01/15/18 01/16/18 14:59 22:59 06:59 Intake Total 500 ml Balance 500 ml Physical Exam General Appearance: The patient is alert, has no immediate need for airway protection and no current signs of toxicity. Respiratory: Chest is non tender, lungs are clear to auscultation. Cardiac: regular rate and rhythm Gastrointestinal: Abdomen is soft and non tender, no masses, bowel sounds normal. Musculoskeletal: Neck: Neck is supple and non tender. Extremities have full range of motion and are non tender. Skin: No rashes or lesions. DIFFERENTIAL DIAGNOSIS: After history and physical exam differential diagnosis was considered for dizziness including but not limited to peripheral and central causes of vertigo, orthostatic causes including dehydration, and blood loss. Included in the differential is bowel blockage, gastroenteritis. Medical Decision Making Data Points Result Diagram: 01/15/18 1720 01/15/18 1720 Laboratory Hematology Test 01/15/18 17:20 01/15/18 18:22 Red Blood Count 4.51 M/uL (4.17-5.56) Mean Corpuscular Volume 89.0 fL (80.0-96.0) Mean Corpuscular Hemoglobin 31.2 pg (26.0-33.0) Mean Corpuscular Hemoglobin Concent 35.1 g/dL (32.0-36.0) Red Cell Distribution Width 14.5 % (11.5-14.5) Mean Platelet Volume 7.7 fL (7.2-11.1) Neutrophils (%) (Auto) 69.1 % (39.4-72.5) Lymphocytes (%) (Auto) 18.6 % (17.6-49.6) Monocytes (%) (Auto) 10.6 % (4.1-12.4) Eosinophils (%) (Auto) 1.1 % (0.4-6.7) Basophils (%) (Auto) 0.6 % (0.3-1.4) Nucleated RBC Relative Count (auto) 0.1 /100WBC Neutrophils # (Auto) 6.6 K/uL (2.0-7.4) Lymphocytes # (Auto) 1.8 K/uL (1.3-3.6) Monocytes # (Auto) 1.0 K/uL (0.3-1.0) Eosinophils # (Auto) 0.1 K/uL (0.0-0.5) Basophils # (Auto) 0.1 K/uL (0.0-0.1) Nucleated RBC Absolute Count (auto) 0.01 K/uL Prothrombin Time 14.4 seconds (12.0-14.4) Prothromb Time International Ratio 1.11 Sodium Level 131 mmol/L (137-145) Potassium Level 4.1 mmol/L (3.5-5.0) Chloride Level 80 mmol/L (98-107) Carbon Dioxide Level 41 mmol/L (22-31) Blood Urea Nitrogen 46 mg/dl (7-18) Creatinine 2.10 mg/dl (0.52-1.04) Glomerular Filtration Rate Calc 23.1 Random Glucose 107 mg/dl (75-110) Calcium Level 9.6 mg/dl (8.4-10.2) Total Bilirubin 0.5 mg/dl (0.2-1.3) Aspartate Amino Transf (AST/SGOT) 26 U/L (0-35) Alanine Aminotransferase (ALT/SGPT) 21 U/L (0-56) Alkaline Phosphatase 148 U/L (0-126) C-Reactive Protein 1.7 mg/dl (<1.0) Total Protein 8.3 gm/dl (6.3-8.2) Albumin 3.8 g/dl (3.5-5.0) Amylase Level 121 U/L (0-110) Lipase 106 U/L (23-300) Urine Color [place] Urine Clarity Turbid Urine pH 9.0 pH (4.8-9.5) Urine Specific [place] 1.017 Urine Protein 100 mg/dL (NEGATIVE) Urine Glucose (UA) Negative mg/dL (NEGATIVE) Urine Ketones Negative mg/dL (NEGATIVE) Urine Blood Moderate (NEGATIVE) Urine Nitrite Negative (NEGATIVE) Urine Bilirubin Small (NEGATIVE) Urine Urobilinogen Negative mg/dL (0.2-1.9) Urine Leukocyte Esterase Large (NEGATIVE) Urine RBC 339 /HPF (0-2/HPF) Urine WBC 630 /HPF (0-5/HPF) Urine WBC Clumps Many /HPF Urine Squamous Epithelial Cells None /LPF (NONE-FEW) Urine Triple Phosphate Crystals Moderate /HPF (NONE) Urine Bacteria Moderate /HPF (NONE-FEW) Urine Hyaline Casts Many /LPF (NONE-FEW) Urine Mucus Few /HPF (NONE-FEW) Chemistry Test 01/15/18 17:20 01/15/18 18:22 White Blood Count 9.5 k/uL (4.5-11.0) Red Blood Count 4.51 M/uL (4.17-5.56) Hemoglobin 14.1 g/dL (12.0-16.0) Hematocrit 40.1 % (34.0-47.0) Mean Corpuscular Volume 89.0 fL (80.0-96.0) Mean Corpuscular Hemoglobin 31.2 pg (26.0-33.0) Mean Corpuscular Hemoglobin Concent 35.1 g/dL (32.0-36.0) Red Cell Distribution Width 14.5 % (11.5-14.5) Platelet Count 318 K/uL (150-450) Mean Platelet Volume 7.7 fL (7.2-11.1) Neutrophils (%) (Auto) 69.1 % (39.4-72.5) Lymphocytes (%) (Auto) 18.6 % (17.6-49.6) Monocytes (%) (Auto) 10.6 % (4.1-12.4) Eosinophils (%) (Auto) 1.1 % (0.4-6.7) Basophils (%) (Auto) 0.6 % (0.3-1.4) Nucleated RBC Relative Count (auto) 0.1 /100WBC Neutrophils # (Auto) 6.6 K/uL (2.0-7.4) Lymphocytes # (Auto) 1.8 K/uL (1.3-3.6) Monocytes # (Auto) 1.0 K/uL (0.3-1.0) Eosinophils # (Auto) 0.1 K/uL (0.0-0.5) Basophils # (Auto) 0.1 K/uL (0.0-0.1) Nucleated RBC Absolute Count (auto) 0.01 K/uL Prothrombin Time 14.4 seconds (12.0-14.4) Prothromb Time International Ratio 1.11 Glomerular Filtration Rate Calc 23.1 Calcium Level 9.6 mg/dl (8.4-10.2) Total Bilirubin 0.5 mg/dl (0.2-1.3) Aspartate Amino Transf (AST/SGOT) 26 U/L (0-35) Alanine Aminotransferase (ALT/SGPT) 21 U/L (0-56) Alkaline Phosphatase 148 U/L (0-126) C-Reactive Protein 1.7 mg/dl (<1.0) Total Protein 8.3 gm/dl (6.3-8.2) Albumin 3.8 g/dl (3.5-5.0) Amylase Level 121 U/L (0-110) Lipase 106 U/L (23-300) Urine Color Jennifer Urine Clarity Turbid Urine pH 9.0 pH (4.8-9.5) Urine Specific [place] 1.017 Urine Protein 100 mg/dL (NEGATIVE) Urine Glucose (UA) Negative mg/dL (NEGATIVE) Urine Ketones Negative mg/dL (NEGATIVE) Urine Blood Moderate (NEGATIVE) Urine Nitrite Negative (NEGATIVE) Urine Bilirubin Small (NEGATIVE) Urine Urobilinogen Negative mg/dL (0.2-1.9) Urine Leukocyte Esterase Large (NEGATIVE) Urine RBC 339 /HPF (0-2/HPF) Urine WBC 630 /HPF (0-5/HPF) Urine WBC Clumps Many /HPF Urine Squamous Epithelial Cells None /LPF (NONE-FEW) Urine Triple Phosphate Crystals Moderate /HPF (NONE) Urine Bacteria Moderate /HPF (NONE-FEW) Urine Hyaline Casts Many /LPF (NONE-FEW) Urine Mucus Few /HPF (NONE-FEW) Coagulation Test 01/15/18 17:20 Prothrombin Time 14.4 seconds Prothromb Time International Ratio 1.11 Urinalysis Test 01/15/18 18:22 Urine Color Jennifer Urine Clarity Turbid Urine pH 9.0 pH (4.8-9.5) Urine Specific [place] 1.017 Urine Protein 100 mg/dL (NEGATIVE) Urine Glucose (UA) Negative mg/dL (NEGATIVE) Urine Ketones Negative mg/dL (NEGATIVE) Urine Blood Moderate (NEGATIVE) Urine Nitrite Negative (NEGATIVE) Urine Bilirubin Small (NEGATIVE) Urine Urobilinogen Negative mg/dL (0.2-1.9) Urine Leukocyte Esterase Large (NEGATIVE) Urine RBC 339 /HPF (0-2/HPF) Urine WBC 630 /HPF (0-5/HPF) Urine WBC Clumps Many /HPF Urine Squamous Epithelial Cells None /LPF (NONE-FEW) Urine Triple Phosphate Crystals Moderate /HPF (NONE) Urine Bacteria Moderate /HPF (NONE-FEW) Urine Hyaline Casts Many /LPF (NONE-FEW) Urine Mucus Few /HPF (NONE-FEW) EKG/Imaging EKG Interpretation 12 lead EKG: Rhythm: normal sinus rhythm with a ventricular rate of 75 bpm [place]: normal QRS: normal ST segments: normal Imaging Exam: KUB SINGLE VIEW ABDOMEN Indication: ABD PAIN, RAD Comparison: November 20, 2017 Findings: Gastrostomy tube overlies the midline. There is a nonobstructive bowel gas pattern present. No abnormal masses or calcifications are identified. IMPRESSION: 1. No evidence of bowel obstruction Report Dictated By: Driss Buck at 01/15/2018 6:15 PM Report E-Signed By: Driss Buck at 01/15/2018 6:17 PM ED Course/Re-evaluation ED Course Patient was admitted to an exam room, history and physical were done. Differential diagnoses were considered. On examination lungs are clear, heart is regular, abdomen is soft nontender. Because of the abnormal labs repeat lab work was done. Patient had a normal white count, sodium was 133 and chloride was 40. Patient also had an elevated BUN and creatinine, BUN was 46 and creatinine was 2.1. A urinalysis obtained which did show a large leukocyte esterase with 600 white blood cells per high-power field. With patient having an indwelling catheter I chose to ultimately culture the urine and will treat according to the culture results. Patient received 500 cc of normal saline here in the emergency room. I did call and discuss the case with Dr. Larios, the patient's primary care provider, and informed him of the labs. With her last being very consistent for the past week I was not alarmed and felt that patient could be rehydrated, with 1 L of normal saline, at the care home. He did agree with that plan. He also agreed with culturing the urine and treating according to the culture. I discussed this with the patient and her family and they verbalized understanding and agreement. Patient will be discharged go back to the care home. Decision to Disposition Date: Jan 15, 2018 Decision to Disposition Time: 19:35 Depart Departure Latest Vital Signs Vital Signs Date Time Temp Pulse Resp B/P (MAP) Pulse Ox O2 Delivery O2 Flow Rate FiO2 01/15/18 18:39 3.0 01/15/18 18:30 65 13 83/58 (66) 97 01/15/18 16:52 98.4 Nasal Cannula Core Temperature (Celsius): 36.2 Impression: Primary Impression: Dehydration Condition: Improved Disposition: HOME OR SELF-CARE Referrals: LESVIA LARIOS DO (PCP) Patient Instructions: Dehydration (ED) Additional Instructions: Give 1L of Normal Saline tonight. Repeat labs in 2 days. Get plenty of rest. Increase fluid intake. Follow up with Dr. Larios on Friday. Continue with normal medications. ZULAY FONSECA Jan 15, 2018 17:00
--- NOTE | 2018-01-15 17:16 | EKG ---
FACILITY: [facility] - [place] PATIENT NAME: ACOSTA COCHRAN : [id number] MR: [id number] V: [id number] EXAM DATE: ORDERING PHYSICIAN: ZULAY FONSECA TECHNOLOGIST: Test Reason : Blood Pressure : / mmHG Vent. Rate : 075 BPM Atrial Rate : 075 BPM P-R Int : 114 ms QRS Dur : 072 ms QT Int : 380 ms P-R-T Axes : -01 066 030 degrees QTc Int : 424 ms Normal sinus rhythm Normal ECG When compared with ECG of 09-JAN-2018 20:23, No significant change was found Confirmed by VIC BOSWELL ([id number]) on 01/15/2018 5:41:05 PM Referred By: Confirmed By:VIC BOSWELL
[2018-01-15 17:28] LABS: PLATELET COUNT, AUTOMATED 318 K/uL (150-450)
[2018-01-15 17:36] LABS: INR 1.11
--- NOTE | 2018-01-15 18:21 | RADIOLOGY IMAGING REPORT ---
FACILITY: [facility] PATIENT NAME: Jane Winkler : 1945 MR: [id number] V: [id number] EXAM DATE: ORDERING PHYSICIAN: ZULAY FONSECA TECHNOLOGIST: Location: [facility] [place] Patient: Jane Winkler : 1945 Visit/Account:[id number] Date of Sevice: 01/15/2018 Exam: KUB SINGLE VIEW ABDOMEN Indication: ABD PAIN, RAD Comparison: November 20, 2017 Findings: Gastrostomy tube overlies the midline. There is a nonobstructive bowel gas pattern present. No abnormal masses or calcifications are identified. IMPRESSION: 1. No evidence of bowel obstruction Report Dictated By: Driss Buck at 01/15/2018 6:15 PM Report E-Signed By: Driss Buck at 01/15/2018 6:17 PM WSN:[id number]
[2018-01-15 18:30] VITALS: BP 83/58
[2018-01-15] MEDS ORDERED: MORPHINE 4 MG/ML SDV IVP ONE (18:30)
[2018-01-15] MEDS ORDERED: HEPARIN FLSH (PORT) 500 UN/5ML IVP ONE (19:40)
== END 2018-01-15 20:02 | disposition home or self-care (01) ==
LOC: ER 16:59
DX: E86.0 Dehydration (principal)
CPT/HCPCS: 74018; 81001; 82150; 83690; 85025; 85610; 86140; 87088; 93005; 96361; 96374; 96375; 99284; J1642; J2270; J2405; J7040; 82040; 82247; 82310; 82374; 82435; 82565; 82947; 84075; 84132; 84155; 84295; 84450; 84460; 84520; 87077; 87186

== ENCOUNTER → 2018-01-15 | Outpatient (CLI) | payer MEDICARE ==
[2017-06-17 10:30] VITALS: BMI 18.5
== END ==
LOC: AMB 16:34
PROVIDERS: ATTEND Nurse Practitioner
DX: R53.1 Weakness (principal); R79.89 Other specified abnormal findings of blood chemistry; I95.9 Hypotension, unspecified; R09.02 Hypoxemia
CPT/HCPCS: A0425; A0427

== ENCOUNTER → 2018-01-15 | Outpatient (REF) | payer MEDICARE ==
[2017-06-17 10:30] VITALS: BMI 18.5
== END ==
LOC: ZZLCC 11:53
PROVIDERS: ATTEND Family Medicine
DX: E87.6 Hypokalemia (principal)
CPT/HCPCS: 82310; 82374; 82435; 82565; 82947; 84132; 84295; 84520

== ENCOUNTER → 2018-01-15 | Outpatient (CLI) | payer MEDICARE, MEDICAID ==
[2017-06-17 10:30] VITALS: BMI 18.5
== END ==
LOC: AMB 19:56
PROVIDERS: ATTEND Nurse Practitioner
DX: R53.1 Weakness (principal)
CPT/HCPCS: A0425; A0428

== ENCOUNTER → 2018-01-20 | Outpatient (REF) | payer MEDICARE ==
[2017-06-17 10:30] VITALS: BMI 18.5
[~2018-01-20] MED LIST changes: +IPRA3AMP10 IH; -IPRA3AMP21 IH
== END ==
LOC: ZZLCC 11:44
PROVIDERS: ATTEND Family Medicine
DX: E86.0 Dehydration (principal)
CPT/HCPCS: 82040; 82247; 82310; 82374; 82435; 82565; 82947; 84075; 84132; 84155; 84295; 84450; 84460; 84520

== ENCOUNTER → 2018-01-22 | Outpatient (REF) | payer MEDICARE, MEDICAID ==
[2017-06-17 10:30] VITALS: BMI 18.5
[~2018-01-22] MED LIST changes: -IPRA3AMP10 IH; +IPRA3AMP21 IH
== END ==
LOC: ZZSENDIN 13:32
PROVIDERS: ATTEND Family Medicine
DX: E87.1 Hypo-osmolality and hyponatremia (principal)
CPT/HCPCS: 82310; 82374; 82435; 82565; 82947; 84132; 84295; 84520

== ENCOUNTER → 2018-01-23 | Outpatient (REF) | payer MEDICARE, MEDICAID ==
[2017-06-17 10:30] VITALS: BMI 18.5
== END ==
LOC: ZZLCC 17:15
PROVIDERS: ATTEND Family Medicine
DX: E46 Unspecified protein-calorie malnutrition (principal); E83.42 Hypomagnesemia; E86.0 Dehydration; E87.1 Hypo-osmolality and hyponatremia; E87.6 Hypokalemia; E87.8 Other disorders of electrolyte and fluid balance, not elsewhere classified
CPT/HCPCS: 82310; 82374; 82435; 82565; 82947; 84132; 84295; 84520

== ENCOUNTER → 2018-01-28 | Outpatient (REF) | payer MEDICARE, MEDICAID ==
[2017-06-17 10:30] VITALS: BMI 18.5
== END ==
LOC: ZZLCC 11:58
PROVIDERS: ATTEND Family Medicine
DX: E87.1 Hypo-osmolality and hyponatremia (principal)
CPT/HCPCS: 82310; 82374; 82435; 82565; 82947; 84132; 84295; 84520

== ENCOUNTER → 2018-02-10 | Outpatient (REF) | payer MEDICARE, MEDICAID ==
[2017-06-17 10:30] VITALS: BMI 18.5
[2018-02-10 08:20] LABS: PLATELET COUNT, AUTOMATED 229 K/uL (150-450)
== END ==
LOC: ZZLCC 07:51
PROVIDERS: ATTEND Family Medicine
DX: E46 Unspecified protein-calorie malnutrition (principal); E87.1 Hypo-osmolality and hyponatremia; R14.0 Abdominal distension (gaseous)
CPT/HCPCS: 82040; 82247; 82310; 82374; 82435; 82565; 82947; 84075; 84132; 84155; 84295; 84450; 84460; 84520; 85025

== ENCOUNTER → 2018-02-18 | Outpatient (REF) | payer MEDICARE, MEDICAID ==
[2017-06-17 10:30] VITALS: BMI 18.5
[~2018-02-18] MED LIST changes: +IPRA3AMP10 IH; -IPRA3AMP21 IH
== END ==
LOC: ZZLCC 16:35
PROVIDERS: ATTEND Family Medicine
DX: E87.6 Hypokalemia (principal)
CPT/HCPCS: 82310; 82374; 82435; 82565; 82947; 84132; 84295; 84520

== ENCOUNTER 2018-02-27 02:15 | Day surgery (SDC) | payer MEDICARE, MEDICAID ==
[2017-06-17 10:30] VITALS: Ht 162.6 cm; Wt 49.0 kg
[~2018-02-27] VITALS: Ht 162.6 cm; Wt 49.0 kg
[2018-02-27 11:50] VITALS: BP 108/67
[2018-02-27] MEDS ORDERED: NORMOSOL R SOLN(*) 1000 ML BAG 1,000 ML IV PRN (12:05)
[2018-02-27] MEDS ORDERED: LIDOCAINE/SOD BICARB 8.4% SYR ID ONE (12:05)
[2018-02-27 14:01] VITALS: BP 99/76
--- NOTE | 2018-02-27 14:11 | Short(Outpt) Discharge Summary ---
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 Departure Discharge to: Home, Self Care Discharge Instructions Home Meds Active Scripts Magnesium Oxide (MAGNESIUM) 400 Mg Capsule, 400 MG PO DAILY, #30 CAPSULE 1 Refill Prov:CATA UREÑA MD 04/24/16 Levothyroxine Sodium (SYNTHROID) 75 Mcg Tablet, 0.075 MG PO QDAY@06, #30 TAB Prov:FREDDIE VOGT MD 04/19/16 Reported Medications Ondansetron (ZOFRAN ODT) 4 Mg Tab.rapdis, 4 MG PO Q12H, TAB.TYRONE 11/20/17 Ranitidine Hcl (ZANTAC) 150 Mg Tablet, 150 MG PO QDAY, TAB 11/20/17 Loratadine (CLARITIN) 10 Mg Capsule, 10 MG PO, CAPSULE 11/20/17 Ciprofloxacin Hcl (CIPROFLOXACIN HCL) 500 Mg Tablet, 250 MG PO QDAY, #14 TAB 11/20/17 Pantoprazole Sodium (PROTONIX) 40 Mg Granpkt.dr, 40 MG PO BID, PACK 06/23/17 Albuterol Sulfate 90 Mcg/Act (PROAIR HFA 90 MCG/ACT) 8.5 Gm Hfa.aer.ad, 1-2 PUFF IH Q2H Y for SHORTNESS OF BREATH, INHALER 05/17/17 Oxycodone Hcl/Acetaminophen (OXYCODONE-ACETAMINOPHEN 5-325) 1 Each Tablet, 1 EACH PO Q4H Y for PAIN, TAB 05/07/17 Ferrous Sulfate (IRON) 325 Mg Tablet, 325 MG PO BID 05/07/17 Hydroxyzine Hcl (HYDROXYZINE HCL) 25 Mg Tablet, 12.5 MG PO BID Y for ITCHING 05/07/17 Magnesium Hydroxide (MILK OF MAGNESIA) 400 Mg/5 Ml Oral.susp, 800 MG PO BID, BOTTLE 05/07/17 Potassium Chloride (POTASSIUM CHLORIDE) 20 Meq/15 Ml Liquid, 20 MEQ PO BID 03/13/17 Acetaminophen (TYLENOL EXTRA STRENGTH) 500 Mg Tablet, 500 MG PO Q4H Y for PAIN, TAB 03/13/17 Simethicone (SIMETHICONE) 80 Mg Tab.chew, 80 MG PO Q6H, TAB.CHEW 8/2/17 Nutritional Supplement (OSMOLITE) 237 Ml Liquid, 1000 ML FT QHS osmolyte 1.5 lona @ 70mL/hr x 12 hours 01/14/17 Fluticasone Prop 50 Mcg Ns (FLONASE 50 MCG NS) 16 Gm [place].susp, 1 SPRAY NS BID , BOT 03/27/16 Diet: Regular Activity: As Tolerated Special Instructions: Upper endoscopy completed without problems. 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 I used a balloon and was able to dilate the stricture. No other problems found. The balloon on the internal portion of her feeding tube is filled and in good position. Start with liquid diet today and tomorrow Jane can have her normal diet if she's tolerates a liquid diet today. Problem Qualifiers (1) Dysphagia: Dysphagia type: esophageal phase Qualified Codes: R13.10 - Dysphagia, unspecified OSEI OLIVEIRA MD Feb 27, 2018 14:11
[2018-02-27 14:15] VITALS: BP 83/60
[2018-02-27 14:30] VITALS: BP 90/58
[2018-02-27 14:36] VITALS: BP 87/78
== END 2018-02-27 15:10 | disposition home or self-care (01) ==
LOC: OR 02:15
PROVIDERS: ATTEND Surgery
DX: K22.2 Esophageal obstruction (principal); K44.9 Diaphragmatic hernia without obstruction or gangrene
CPT/HCPCS: 43249; C1726

== ENCOUNTER 2018-06-17 16:43 | Emergency (ER) | payer MEDICARE, MEDICAID ==
[2017-06-17 10:30] VITALS: Wt 49.1 kg
[~2018-06-17 16:43] MED LIST changes: +METR500T15 PO; -METR500T54 PO
--- NOTE | 2018-06-17 16:46 | ER Report ---
History and Physical Time Seen By MD: 16:46 HPI/ROS CHIEF COMPLAINT: Leaking from Peg tube site HISTORY OF PRESENT ILLNESS: This is a 72-year-old female who presents to the emergency department via EMS from the [facility] for leaking from her Peg tube site. The patient was seen by Dr. Weber 5 days ago, she had expressed concern about leaking around her PEG tube, at which time he removed the PEG tube. According to Dr. Weber's note there was some local irritation to the site with some drainage. The [facility] staff have been changing the bandages as needed and applying some anabiotic ointment to the area. No fevers or chills. No nausea or vomiting. No other concerns. No changes in abdominal discomfort. REVIEW OF SYSTEMS: Respiratory: No cough, no dyspnea. Cardiovascular: No chest pain, no palpitations. Gastrointestinal: As above. Musculoskeletal: No back pain. Allergies: Coded Allergies: propoxyphene (Verified Allergy, Mild, 11/25/17) Penicillins (Verified Allergy, Unknown, 11/25/17) had ceftriaxone in the past w/o problems Sulfa (Sulfonamide Antibiotics) (Verified Allergy, Unknown, 11/25/17) codeine (Verified Allergy, Unknown, 11/25/17) tetracycline (Verified Allergy, Unknown, 11/25/17) HAS TAKEN TIGECYCLINE IN THE PAST W/O PROBLEMS Home Meds Active Scripts Magnesium Oxide (MAGNESIUM) 400 Mg Capsule, 400 MG PO DAILY, #30 CAPSULE 1 Refill Prov:CATA UREÑA MD 04/24/16 Levothyroxine Sodium (SYNTHROID) 75 Mcg Tablet, 0.075 MG PO QDAY@06, #30 TAB Prov:FREDDIE VOGT MD 04/19/16 Reported Medications Ondansetron (ZOFRAN ODT) 4 Mg Tab.rapdis, 4 MG PO Q12H, TAB.TYRONE 11/20/17 Ranitidine Hcl (ZANTAC) 150 Mg Tablet, 150 MG PO QDAY, TAB 11/20/17 Loratadine (CLARITIN) 10 Mg Capsule, 10 MG PO, CAPSULE 11/20/17 Ciprofloxacin 500 Mg Tab (CIPROFLOXACIN 500 MG TAB) 500 Mg Tablet, 250 MG PO QDAY, #14 TAB 11/20/17 Pantoprazole Sodium (PROTONIX) 40 Mg Granpkt.dr, 40 MG PO BID, PACK 06/23/17 Albuterol Sulfate 90 Mcg/Act (PROAIR HFA 90 MCG/ACT) 8.5 Gm Hfa.aer.ad, 1-2 PUFF IH Q2H PRN for SHORTNESS OF BREATH, INHALER 05/17/17 Oxycodone Hcl/Acetaminophen (OXYCODONE-ACETAMINOPHEN 5-325) 1 Each Tablet, 1 EACH PO Q4H PRN for PAIN, TAB 05/07/17 Ferrous Sulfate (IRON) 325 Mg Tablet, 325 MG PO BID 05/07/17 Hydroxyzine Hcl (HYDROXYZINE HCL) 25 Mg Tablet, 12.5 MG PO BID PRN for ITCHING 05/07/17 Magnesium Hydroxide (MILK OF MAGNESIA) 400 Mg/5 Ml Oral.susp, 800 MG PO BID, BOTTLE 05/07/17 Potassium Chloride (POTASSIUM CHLORIDE) 20 Meq/15 Ml Liquid, 20 MEQ PO BID 03/13/17 Acetaminophen (TYLENOL EXTRA STRENGTH) 500 Mg Tablet, 500 MG PO Q4H PRN for PAIN, TAB 03/13/17 Simethicone (SIMETHICONE) 80 Mg Tab.chew, 80 MG PO Q6H, TAB.CHEW 03/12/17 Nutritional Supplement (OSMOLITE) 237 Ml Liquid, 1000 ML FT QHS osmolyte 1.5 lona @ 70mL/hr x 12 hours 01/14/17 Fluticasone Prop 50 Mcg Ns (FLONASE 50 MCG NS) 16 Gm [place].susp, 1 SPRAY NS BID, BOT 03/27/16 Past Medical/Surgical History Patient has a past medical history of dementia, DVT, asthma, Mercado pouch, fibromyalgia, arthritis, back pain, hypothyroidism, depression. Patient has surgical history of cholecystectomy, colectomy, ileostomy, left ovary removed, hysterectomy, cataract surgery, left breast mass removed. Patient has a family medical history of cancer, CAD, diabetes, psychiatric problems. Reviewed Nurses Notes: Yes Hx Smoking: No Smoking Status: Never Smoker Exposure to Second Hand Smoke?: No Hx Substance Use Disorder: No Hx Alcohol Use: No Constitutional Vital Sign - Last 24 Hours 06/17/18 16:47 Temp 98.3 Pulse 79 Resp 20 B/P (MAP) 93/72 Pulse Ox 92 O2 Delivery Room Air Physical Exam General Appearance: The patient is alert, has no immediate need for airway protection and no current signs of toxicity. Eyes: Pupils equal and round no injection. Respiratory: Chest is non tender, lungs are clear to auscultation. Cardiac: regular rate and rhythm. Gastrointestinal: Abdomen is round, soft and non tender, no masses, hyperactive bowel sounds. Clear drainage from the PEG tube site. Small amount of excoriation, no cellulitis or other infectious process identified. Musculoskeletal: Neck: Neck is supple and non tender. Extremities have full range of motion and are non tender. Skin: No rashes or lesions. DIFFERENTIAL DIAGNOSIS: After history and physical exam differential diagnosis was considered for cellulitis, PEG tube site malfunction, delayed wound healing. Medical Decision Making ED Course/Re-evaluation ED Course The patient was admitted to room. A physical were obtained. Differential diagnoses were considered. After examination of the patient, no signs of infection, no cellulitis, there is some local excoriation to the PEG tube site. There is clear drainage that can be moderately expressed of the patient is bearing down that she is having a bowel movement or if I apply some firm pressure to the abdomen, this does not cause discomfort. I did consult with Dr. Alcaraz as noted below. He felt the patient would be okay to go home, these wounds can take a couple of weeks at least to completely close. I did discuss this information with the patient and her ex- who is at the bedside. We did apply a thin layer of antibiotic ointment and ABD pads to the site. Patient was instructed to follow-up with her primary care provider within one week, I would prefer if she could follow-up with Dr. Weber within one week to 10 days for reevaluation as well. The patient had no other questions or concerns at this time neither did her ex-, the patient was discharged home. Patient's ex- will be driving her back to the [facility]. 06/17/2018 5:29:57 pm I did speak with Dr. Alcaraz, the surgeon on-call re garding the patient's case, he recommended conservative treatment continue with the application of bacitracin and ABD pads as needed, as this PEG tube has been in place for a number of years it could potentially take a couple of weeks for the site to completely close. Decision to Disposition Date: Jun 17, 2018 Decision to Disposition Time: 17:29 Depart Departure Latest Vital Signs Vital Signs Date Time Temp Pulse Resp B/P (MAP) Pulse Ox O2 Delivery O2 Flow Rate FiO2 06/17/18 16:47 98.3 79 20 93/72 92 Room Air Core Temperature (Celsius): 36.2 Impression: Primary Impression: Drainage from wound Condition: Improved Disposition: HOME OR SELF-CARE Referrals: LESVIA LARIOS DO (PCP) 1 Week OSEI OLIVEIRA MD 10 Days Patient Instructions: Acute Wound Care (ED), Chronic Wound Care (DC) Additional Instructions: There are no signs of infection. It is possible to have continued drainage from the PEG tube site for a couple of weeks. Continue to monitor the area for infection. Continue having the [facility] staff apply a thin layer of antibiotic ointment to the site and keep it covered with an absorbent pad, change as necessary. Continue with your current medications. Drink plenty of water. Get plenty of rest. Return to the emergency department for any concerns or worsening symptoms. KERI NORRIS REFERENCE ARCHIVIST-BC Jun 17, 2018 16:46
[2018-06-17 16:47] VITALS: BP 93/72
== END 2018-06-17 17:40 | disposition home or self-care (01) ==
LOC: ER 16:52
DX: T81.89XA Other complications of procedures, not elsewhere classified, initial encounter (principal)
CPT/HCPCS: 99281

== ENCOUNTER → 2018-06-17 | Outpatient (CLI) | payer MEDICARE, MEDICAID ==
[2017-06-17 10:30] VITALS: BMI 18.5
[~2018-06-17] MED LIST changes: -CEFT250V36 IJ; +CEFT250V37 IJ; -METR-159 PO; -METR-160 PO; +METR250T8 PO; +METR500T54 PO
== END ==
LOC: AMB 16:25
PROVIDERS: ATTEND Nurse Practitioner
DX: L76.82 Other postprocedural complications of skin and subcutaneous tissue (principal)
CPT/HCPCS: A0425; A0429

== ENCOUNTER → 2018-06-25 | Outpatient (REF) | payer MEDICARE, MEDICAID ==
[2017-06-17 10:30] VITALS: BMI 18.5
[~2018-06-25] MED LIST changes: -METR500T15 PO; +METR500T54 PO
== END ==
LOC: ZZLCC 07:13
PROVIDERS: ATTEND Family Medicine
DX: E03.9 Hypothyroidism, unspecified (principal)
CPT/HCPCS: 84443

== ENCOUNTER 2018-06-26 16:09 | Emergency (ER) | payer MEDICARE, MEDICAID ==
[2017-06-17 10:30] VITALS: Wt 54.0 kg
[2018-06-26] MEDS ORDERED: LIDOCAINE 2% VISC SLN 15ML UDC PO ONE (16:35)
[2018-06-26] MEDS ORDERED: MAG HYD/AL HYD/SIMETH 30ML UDC PO ONE (16:35)
--- NOTE | 2018-06-26 16:48 | EKG ---
FACILITY: [facility] PATIENT NAME: ACOSTA COCHRAN : [id number] MR: [id number] V: [id number] EXAM DATE: ORDERING PHYSICIAN: RAMYA HICKS TECHNOLOGIST: TIANNA Test Reason : THROWING UP Blood Pressure : / mmHG Vent. Rate : 074 BPM Atrial Rate : 074 BPM P-R Int : 156 ms QRS Dur : 062 ms QT Int : 368 ms P-R-T Axes : 041 051 044 degrees QTc Int : 408 ms Normal sinus rhythm Normal ECG When compared with ECG of 15-JAN-2018 17:10, No significant change was found Confirmed by Vega Fry ([id number]) on 06/26/2018 11:00:56 PM Referred By: FABIOLA Confirmed By:Vega Romero
[2018-06-26] MEDS ORDERED: ONDANSETRON 4 MG/2 ML VIAL IVP ONE (17:20)
--- NOTE | 2018-06-26 17:26 | RADIOLOGY IMAGING REPORT ---
FACILITY: [facility] PATIENT NAME: Jane Winkler : 1945 MR: [id number] V: [id number] EXAM DATE: ORDERING PHYSICIAN: RAMYA HICKS TECHNOLOGIST: Location: [facility] - [place] Patient: Jane Winkler : 1945 Visit/Account:[id number] Date of Sevice: 06/26/2018 CHEST SINGLE AP COMPARISONS: Single view chest dated June 16, 2017 ADDITIONAL PERTINENT HISTORY: Shortness of breath FINDINGS: Life-support: Left internal jugular venous port with its tip at the cavoatrial junction. Cardiomediastinal silhouette: Negative. Pulmonary vasculature: Negative. Lung dao: Negative. Pleural spaces: Negative. Osseous structures: Negative. Surrounding soft tissues: Negative. IMPRESSION: No evidence of acute cardiopulmonary disease. Report Dictated By: Marco A Cantu MD at 06/26/2018 5:19 PM Report E-Signed By: Marco A Cantu MD at 06/26/2018 5:22 PM WSN:[id number]
--- NOTE | 2018-06-26 17:27 | ER Report ---
History and Physical Time Seen By MD: 16:25 Hx. of Stated Complaint: PT STATED THIS HAS BEEN GOING ON ALL DAY (RAMYA HICKS MD) HPI/ROS CHIEF COMPLAINT: Chest pain HISTORY OF PRESENT ILLNESS: Patient presents with complaint of chest pain, pointing to her epigastrium, that she states has been present since ap proximately 10 this morning, constant, sharp, radiating directly to back. Patient states she has had similar pain in the past and has been evaluated for this in the emergency department. Patient denies difficulty breathing. She states that she is nauseous and spitting up, unable to swallow saliva because of nausea. She has no new weakness in her arms or legs. She does complain of a moderate headache. She asks for pain medication throughout the exam. REVIEW OF SYSTEMS: Constitutional: No fever, no chills. Eyes: No discharge. ENT: No sore throat. Cardiovascular: as above Respiratory: No cough, no shortness of breath. Gastrointestinal: abov4 Genitourinary: + dysuria Musculoskeletal: radiates to back as above Skin: No rashes. Neurological: as above Remainder of the 14 system rev: Yes (RAMYA HICKS MD) Allergies: Coded Allergies: propoxyphene (Verified Allergy, Mild, 06/26/18) Penicillins (Verified Allergy, Unknown, 06/26/18) had ceftriaxone in the past w/o problems Sulfa (Sulfonamide Antibiotics) (Verified Allergy, Unknown, 06/26/18) codeine (Verified Allergy, Unknown, 06/26/18) tetracycline (Verified Allergy, Unknown, 06/26/18) HAS TAKEN TIGECYCLINE IN THE PAST W/O PROBLEMS Home Meds Active Scripts Magnesium Oxide (MAGNESIUM) 400 Mg Capsule, 400 MG PO DAILY, #30 CAPSULE 1 Refill Prov:CATA UREÑA MD 04/24/16 Levothyroxine Sodium (SYNTHROID) 75 Mcg Tablet, 0.075 MG PO QDAY@06, #30 TAB Prov:FREDDIE VOGT MD 04/19/16 Reported Medications Ondansetron (ZOFRAN ODT) 4 Mg Tab.rapdis, 4 MG PO Q12H, TAB.TYRONE 11/20/17 Ranitidine Hcl (ZANTAC) 150 Mg Tablet, 150 MG PO QDAY, TAB 11/20/17 Loratadine (CLARITIN) 10 Mg Capsule, 10 MG PO, CAPSULE 4/12/18 Pantoprazole Sodium (PROTONIX) 40 Mg Granpkt.dr, 40 MG PO BID, PACK 06/23/17 Albuterol Sulfate 90 Mcg/Act (PROAIR HFA 90 MCG/ACT) 8.5 Gm Hfa.aer.ad, 1-2 PUFF IH Q2H PRN for SHORTNESS OF BREATH, INHALER 05/17/17 Oxycodone Hcl/Acetaminophen (OXYCODONE-ACETAMINOPHEN 5-325) 1 Each Tablet, 1 EACH PO Q4H PRN for PAIN, TAB 05/07/17 Ferrous Sulfate (IRON) 325 Mg Tablet, 325 MG PO BID 05/07/17 Hydroxyzine Hcl (HYDROXYZINE HCL) 25 Mg Tablet, 12.5 MG PO BID PRN for ITCHING 05/07/17 Magnesium Hydroxide (MILK OF MAGNESIA) 400 Mg/5 Ml Oral.susp, 800 MG PO BID, BOTTLE 05/07/17 Potassium Chloride (POTASSIUM CHLORIDE) 20 Meq/15 Ml Liquid, 20 MEQ PO BID 03/13/17 Acetaminophen (TYLENOL EXTRA STRENGTH) 500 Mg Tablet, 500 MG PO Q4H PRN for PAIN, TAB 03/13/17 Simethicone (SIMETHICONE) 80 Mg Tab.chew, 80 MG PO Q6H, TAB.CHEW 03/12/17 Nutritional Supplement (OSMOLITE) 237 Ml Liquid, 1000 ML FT QHS osmolyte 1.5 lona @ 70mL/hr x 12 hours 01/14/17 Fluticasone Prop 50 Mcg Ns (FLONASE 50 MCG NS) 16 Gm [place]ck[place].susp, 1 SPRAY NS BID, BOT 03/27/16 Discontinued Reported Medications Ciprofloxacin 500 Mg Tab (CIPROFLOXACIN 500 MG TAB) 500 Mg Tablet, 250 MG PO QDAY, #14 TAB 11/20/17 Past Medical/Surgical History Patient has a past medical history of dementia, DVT, asthma, Mercado pouch, fibromyalgia, arthritis, back pain, hypothyroidism, depression. Patient has surgical history of cholecystectomy, colectomy, ileostomy, left ovary removed, hysterectomy, cataract surgery, left breast mass removed. Patient has a family medical history of cancer, CAD, diabetes, psychiatric probl ems. (PERRY RANKIN DO) Reviewed Nurses Notes: Yes Old Medical Records Reviewed: Yes (RAMYA HICKS MD) Hx Smoking: No Smoking Status: Never Smoker Exposure to Second Hand Smoke?: No Hx Substance Use Disorder: No Hx Alcohol Use: No (RAMYA HICKS MD) Constitutional Vital Sign - Last 24 Hours 06/26/18 06/26/18 06/26/18 06/26/18 16:09 16:10 16:13 16:30 Temp 99.8 Pulse 78 78 Resp 14 B/P (MAP) 108/70 (83) 108/70 109/71 (84) Pulse Ox 89 90 O2 Delivery Room Air 06/26/18 06/26/18 06/26/18 06/26/18 16:39 17:00 17:09 17:30 Pulse 77 71 B/P (MAP) 116/73 (87) 112/66 (81) Pulse Ox 88 88 06/26/18 06/26/18 06/26/18 06/26/18 17:39 18:00 18:05 18:30 Pulse 70 72 B/P (MAP) 93/81 (85) 115/67 (83) Pulse Ox 90 92 06/26/18 06/26/18 06/26/18 06/26/18 18:35 19:00 19:05 19:30 Pulse 71 78 B/P (MAP) 120/63 (82) 105/61 (76) Pulse Ox 91 92 (PERRY RANKIN DO) Physical Exam General Appearance: The patient is alert, has no immediate need for airway protection and no signs of toxicity. Eyes: Pupils equal and round no pallor or injection. ENT, Mouth: Mucous membranes are moist. Respiratory: There are no retractions, lungs are clear to auscultation. Cardiovascular: Regular rate and rhythm. no m/r/g Gastrointestinal: epigastric ttp, llq ttp Neurological: alert, oriented, nad Skin: Warm and dry, no rashes. Musculoskeletal: Extremities are nontender, nonswollen and have full range of motion. DIFFERENTIAL DIAGNOSIS: After history and physical exam differential diagnosis was considered for chest pain including but not limited to myocardial ischemia, pericarditis pulmonary embolus, chest wall pain, pleural inflammation and pulmonary infectious causes.abdominal pain including but not limited to appendicitis, cholecystitis, gastritis and urinary tract infection. (RAMYA HICKS MD) Medical Decision Making Data Points Result Diagram: 06/26/18 1749 06/26/18 174 Laboratory Hematology Test 06/26/18 17:49 Red Blood Count 5.07 M/uL (4.17-5.56) Mean Corpuscular Volume 90.0 fL (80.0-96.0) Mean Corpuscular Hemoglobin 30.8 pg (26.0-33.0) Mean Corpuscular Hemoglobin Concent 34.2 g/dL (32.0-36.0) Red Cell Distribution Width 13.6 % (11.5-14.5) Mean Platelet Volume 7.9 fL (7.2-11.1) Neutrophils (%) (Auto) 68.6 % (39.4-72.5) Lymphocytes (%) (Auto) 21.6 % (17.6-49.6) Monocytes (%) (Auto) 8.6 % (4.1-12.4) Eosinophils (%) (Auto) 0.6 % (0.4-6.7) Basophils (%) (Auto) 0.6 % (0.3-1.4) Nucleated RBC Relative Count (auto) 0.0 /100WBC Neutrophils # (Auto) 4.6 K/uL (2.0-7.4) Lymphocytes # (Auto) 1.5 K/uL (1.3-3.6) Monocytes # (Auto) 0.6 K/uL (0.3-1.0) Eosinophils # (Auto) 0.0 K/uL (0.0-0.5) Basophils # (Auto) 0.0 K/uL (0.0-0.1) Nucleated RBC Absolute Count (auto) 0.00 K/uL Sodium Level 140 mmol/L (137-145) Potassium Level 4.1 mmol/L (3.5-5.0) Chloride Level 99 mmol/L (98-107) Carbon Dioxide Level 31 mmol/L (22-31) Blood Urea Nitrogen 40 mg/dl (7-18) Creatinine 1.70 mg/dl (0.52-1.04) Glomerular Filtration Rate Calc 29.5 Random Glucose 113 mg/dl (75-110) Calcium Level 9.8 mg/dl (8.4-10.2) Total Bilirubin 0.6 mg/dl (0.2-1.3) Aspartate Amino Transf (AST/SGOT) 31 U/L (0-35) Alanine Aminotransferase (ALT/SGPT) 32 U/L (0-56) Alkaline Phosphatase 174 U/L (0-126) Troponin I < 0.012 ng/ml Total Protein 9.0 g/dl (6.3-8.2) Albumin 4.3 g/dl (3.5-5.0) Lipase 85 U/L (23-300) Chemistry Test 06/26/18 17:49 White Blood Count 6.8 k/uL (4.5-11.0) Red Blood Count 5.07 M/uL (4.17-5.56) Hemoglobin 15.6 g/dL (12.0-16.0) Hematocrit 45.6 % (34.0-47.0) Mean Corpuscular Volume 90.0 fL (80.0-96.0) Mean Corpuscular Hemoglobin 30.8 pg (26.0-33.0) Mean Corpuscular Hemoglobin Concent 34.2 g/dL (32.0-36.0) Red Cell Distribution Width 13.6 % (11.5-14.5) Platelet Count 285 K/uL (150-450) Mean Platelet Volume 7.9 fL (7.2-11.1) Neutrophils (%) (Auto) 68.6 % (39.4-72.5) Lymphocytes (%) (Auto) 21.6 % (17.6-49.6) Monocytes (%) (Auto) 8.6 % (4.1-12.4) Eosinophils (%) (Auto) 0.6 % (0.4-6.7) Basophils (%) (Auto) 0.6 % (0.3-1.4) Nucleated RBC Relative Count (auto) 0.0 /100WBC Neutrophils # (Auto) 4.6 K/uL (2.0-7.4) Lymphocytes # (Auto) 1.5 K/uL (1.3-3.6) Monocytes # (Auto) 0.6 K/uL (0.3-1.0) Eosinophils # (Auto) 0.0 K/uL (0.0-0.5) Basophils # (Auto) 0.0 K/uL (0.0-0.1) Nucleated RBC Absolute Count (auto) 0.00 K/uL Glomerular Filtration Rate Calc 29.5 Calcium Level 9.8 mg/dl (8.4-10.2) Total Bilirubin 0.6 mg/dl (0.2-1.3) Aspartate Amino Transf (AST/SGOT) 31 U/L (0-35) Alanine Aminotransferase (ALT/SGPT) 32 U/L (0-56) Alkaline Phosphatase 174 U/L (0-126) Troponin I < 0.012 ng/ml Total Protein 9.0 g/dl (6.3-8.2) Albumin 4.3 g/dl (3.5-5.0) Lipase 85 U/L (23-300) (PERRY RANKIN DO) EKG/Imaging EKG Interpretation 12 lead EKG: Rhythm: Normal sinus rhythm [place]: Normal QRS: Normal ST segments: Normal Monitor Interpretation: Normal Sinus Rhythm (RAMYA HICKS MD) ED Course/Re-evaluation ED Course Patient presents with epigastric pain radiating to back. She states she has had similar symptoms before. She is spitting up frequently, consistent with possible gastritis/PUD. GI cocktail partially relieves pain but not completely. Patient has continued tenderness and pain that radiates to mid sternum at this point. Therefore will continue to evaluate for differential above including ACS, aortic dissection, abdominal pathology. I turnover patient at 1800, awaiting blood work, reassessment. (RAMYA HICKS MD) ED Course Care assumed at shift change from Dr. Davida Hicks. Diagnostic studies pending. Review of all diagnostic studies are unremarkable. On reexamination patient is complaining of extreme thirst. Her ex- and herself are concerned that she is not able to swallow enough calories. She underwent dilation of her distal esophagus by Dr. Weber approximately 6 weeks ago. They're concerned she is unable to get enough fluids and food down to stay nourished since she had her feeding tube removed several weeks ago. 06/26/2018 7:14:55 pm case discussed with Dr. Juan A Weber, general surgery, who placed her previous feeding tube. He consulted with the patient here in the emergency department. She will return to [facility]. They will do an esophagram on Friday to evaluate her status. Arrange for outpatient endoscopy. Decision to Disposition Date: Jun 26, 2018 Decision to Disposition Time: 19:26 (PERRY RANKIN DO) Depart Departure Latest Vital Signs Vital Signs Date Time Temp Pulse Resp B/P (MAP) Pulse Ox O2 Delivery O2 Flow Rate FiO2 06/26/18 19:30 105/61 (76) 06/26/18 19:05 78 92 06/26/18 16:13 99.8 14 Room Air (PERRY RANKIN DO) Core Temperature (Celsius): 36.2 (RAMYA HICKS MD) Impression: Primary Impression: PEG tube malfunction Additional Impressions: Mild dehydration Dysphagia Abdominal pain Condition: Improved Disposition: HOME OR SELF-CARE Referrals: LESVIA LARIOS DO (PCP) Patient Instructions: Dysphagia (ED) Additional Instructions: Patient to have an esophagram that was scheduled by Dr. Weber on Friday or Friday next week. Problem Qualifiers Additional Impressions: Dysphagia Dysphagia type: unspecified Qualified Codes: R13.10 - Dysphagia, unspecified Abdominal pain Abdominal location: epigastric Qualified Codes: R10.13 - Epigastric pain RAMYA HICKS MD Jun 26, 2018 17:27 PERRY RANKIN DO Jun 26, 2018 18:15
[2018-06-26] MEDS ORDERED: MORPHINE 2 MG/ML SYR IVP ONE (17:45)
[2018-06-26 18:00] LABS: PLATELET COUNT, AUTOMATED 285 K/uL (150-450)
[2018-06-26 19:30] VITALS: BP 105/61
--- NOTE | 2018-06-26 20:44 | General Surgery Consultation ---
History of Present Illness Requesting Physician Dr. Mccullough, Emergency Department Reason for Consult Leaking from feeding tube hole Chief Complaint Drainage from feeding tube hole History of Present Illness Pt is brought in to ER from [facility] with c/o drainage from the hole from the PEG tube site. I saw her in my office a couple of weeks ago and, at that time, she and her ex-, who is her medical POA, felt that she didn't need the feeding tube as she was eating enough calories and her weight was stable and so they were asking to have the feeding tube removed. It was removed in the office and she has had drainage since then but they both report it is slowly decreasing. She also frequently regurgitates what she's eating but they report that she is eating well enough that her weight is stable. We discussed getting an esophagram on her and this was scheduled but she apparently refused to have it done on the day it was scheduled as she wasn't feeling well on that day. History Problems: (1) Anemia * Optional Permanent Comment*: Last Edited By: Diana Og on Aug 26, 2016 19:13 Status: Chronic (2) Dementia Status: Chronic (3) Depression Status: Chronic (4) Malnutrition Status: Chronic (5) Ileostomy in place Status: Chronic (6) Chronic hyponatremia Status: Chronic (7) Normocytic anemia Status: Chronic (8) Ulcerative colitis, chronic Status: Chronic (9) History of DVT (deep vein thrombosis) Status: Chronic (10) Hx of small bowel obstruction Status: Chronic (11) Esophagitis determined by endoscopy Status: Chronic (12) Atrial fibrillation Status: Chronic (13) Ulcerative colitis Status: Chronic (14) Hypothyroid Status: Chronic (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 (16) DVT (deep venous thrombosis) Status: Chronic (17) Low BMI Status: Chronic (18) Atrial flutter Status: Chronic (19) Dysphagia Status: Chronic (20) Pouchitis Status: Chronic (21) GERD (gastroesophageal reflux disease) Status: Chronic (22) Asthma Status: Chronic (23) Arthritis Status: Chronic (24) Osteoporosis Status: Chronic (25) Fibromyalgia Status: Chronic (26) Allergic rhinitis Status: Chronic (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 (28) Insomnia Status: Chronic (29) Peptic ulcer disease Status: Chronic (30) Hypothyroidism Status: Chronic (31) Chronic pain syndrome Status: Chronic (32) Irritable bowel Status: Chronic (33) Hx of total colectomy Status: Chronic (34) Ileostomy status Status: Chronic (35) History of colectomy Status: Chronic (36) S/P percutaneous endoscopic gastrostomy (PEG) tube placement Status: Chronic (37) History of ileostomy Status: Chronic Home Meds Active Scripts Magnesium Oxide (MAGNESIUM) 400 Mg Capsule, 400 MG PO DAILY, #30 CAPSULE 1 Refill Prov:CATA OG MD 04/24/16 Levothyroxine Sodium (SYNTHROID) 75 Mcg Tablet, 0.075 MG PO QDAY@06, #30 TAB Prov:FREDDIE VOGT MD 04/19/16 Reported Medications Ondansetron (ZOFRAN ODT) 4 Mg Tab.rapdis, 4 MG PO Q12H, TAB.TYRONE 11/20/17 Ranitidine Hcl (ZANTAC) 150 Mg Tablet, 150 MG PO QDAY, TAB 11/20/17 Loratadine (CLARITIN) 10 Mg Capsule, 10 MG PO, CAPSULE 11/20/17 Pantoprazole Sodium (PROTONIX) 40 Mg Granpkt.dr, 40 MG PO BID, PACK 06/23/17 Albuterol Sulfate 90 Mcg/Act (PROAIR HFA 90 MCG/ACT) 8.5 Gm Hfa.aer.ad, 1-2 PUFF IH Q2H PRN for SHORTNESS OF BREATH, INHALER 05/17/17 Oxycodone Hcl/Acetaminophen (OXYCODONE-ACETAMINOPHEN 5-325) 1 Each Tablet, 1 EACH PO Q4H PRN for PAIN, TAB 05/07/17 Ferrous Sulfate (IRON) 325 Mg Tablet, 325 MG PO BID 05/07/17 Hydroxyzine Hcl (HYDROXYZINE HCL) 25 Mg Tablet, 12.5 MG PO BID PRN for ITCHING 05/07/17 Magnesium Hydroxide (MILK OF MAGNESIA) 400 Mg/5 Ml Oral.susp, 800 MG PO BID, BOTTLE 05/07/17 Potassium Chloride (POTASSIUM CHLORIDE) 20 Meq/15 Ml Liquid, 20 MEQ PO BID 03/13/17 Acetaminophen (TYLENOL EXTRA STRENGTH) 500 Mg Tablet, 500 MG PO Q4H PRN for PAIN, TAB 03/13/17 Simethicone (SIMETHICONE) 80 Mg Tab.chew, 80 MG PO Q6H, TAB.CHEW 03/12/17 Nutritional Supplement (OSMOLITE) 237 Ml Liquid, 1000 ML FT QHS osmolyte 1.5 lona @ 70mL/hr x 12 hours 01/14/17 Fluticasone Prop 50 Mcg Ns (FLONASE 50 MCG NS) 16 Gm [place].susp, 1 SPRAY NS BID, BOT 03/27/16 Discontinued Reported Medications Ciprofloxacin 500 Mg Tab (CIPROFLOXACIN 500 MG TAB) 500 Mg Tablet, 250 MG PO QDAY, #14 TAB 11/20/17 Allergies: Coded Allergies: propoxyphene (Verified Allergy, Mild, 06/26/18) Penicillins (Verified Allergy, Unknown, 06/26/18) had ceftriaxone in the past w/o problems Sulfa (Sulfonamide Antibiotics) (Verified Allergy, Unknown, 06/26/18) codeine (Verified Allergy, Unknown, 06/26/18) tetracycline (Verified Allergy, Unknown, 06/26/18) HAS TAKEN TIGECYCLINE IN THE PAST W/O PROBLEMS Family History: Diabetes mellitus (DM) Grandmother, , Age:Unknown FH: COPD (chronic obstructive pulmonary disease) FATHER, , Age:92 FH: dementia MOTHER, Age:unk Review of Systems All Systems Reviewed/Normal: Yes, Except as Noted Gastrointestinal: Dysphagia Exam Vital Signs Vital Signs Date Time Temp Pulse Resp B/P (MAP) Pulse Ox O2 Delivery O2 Flow Rate FiO2 06/26/18 19:30 105/61 (76) 06/26/18 19:05 78 92 06/26/18 16:13 99.8 14 Room Air General Appearance: Alert, Awake, No Acute Distress, Afebrile Neuro: No Gross deficits Eyes: PERRLA GI: Abd Soft and Non-Tender, Other (PEG tube site is leaking small amounts of serous fluid. Skin is superficially excoriated) Extremities: Warm, Perfused Psych: Alert & Oriented X3, Appropriate Mood & Affect Medical Decision Making Data Points Result Diagram: 06/26/18174806/26/181748 Assessment and Plan Problems: (1) Open draining abdominal incision Status: Acute Assessment & Plan: 06/26/18: Initially, I was told that she's not consuming en ough protein/calories for her weight. I offered to admit her and perform EGD with esophageal dilation and placement of a PEG/PEJ feeding tube tomorrow. I suspect she has delayed gastric emptying which is why she has chronic drainage from around her PEG tube and now why she has chronic drainage from her gastrocutaneous fistula. They do not wish to have her admitted with EGD, dilation, PEG/PEJ placement in the morning. They think the drainage is improving and would like to give it more time to close and they would like to continue with our plan of and outpatient esophagram and if there is significant narrowing in her esophagus then will dilate her esophagus. They don't feel she needs a feeding tube at this time. She will try to supplement her diet at [facility] with Boost shakes. My office will call [facility] on Friday and reschedule her esophagram and then we'll call again to arrange an EGD if there's significant narrowing of her esophagus on the esophagram. They wish to have her go back to [facility] tonight. (2) Dysphagia Status: Chronic Condition Stable. Time Spent: < 30 min Venous Thromboembolism VTE Risk Physician Assess for VTE Risk: Yes Patient's VTE Risk: Low VTE Diagnostic Test 2 Days Prior to Admit: No Antithrombotics Is Pt On Any Antithrombotics?: No Problem Qualifiers (1) Open draining abdominal incision: Encounter type: subsequent encounter Qualified Codes: T81.31XD - Disruption of external operation (surgical) wound, not elsewhere classified, subsequent encounter (2) Dysphagia: Dysphagia type: esophageal phase Qualified Codes: R13.10 - Dysphagia, unspecified OSEI OLIVEIRA MD Jun 26, 2018 20:44
== END 2018-06-26 19:46 | disposition home or self-care (01) ==
LOC: ER 16:16
DX: T81.31XA Disruption of external operation (surgical) wound, not elsewhere classified, initial encounter (principal); E86.0 Dehydration; R13.10 Dysphagia, unspecified; R10.13 Epigastric pain
CPT/HCPCS: 71045; 83690; 84484; 85025; 93005; 96374; 96375; 99284; A9270; J2270; J2405; 82040; 82247; 82310; 82374; 82435; 82565; 82947; 84075; 84132; 84155; 84295; 84450; 84460; 84520

== ENCOUNTER → 2018-06-26 | Outpatient (CLI) | payer MEDICARE, MEDICAID ==
[2017-06-17 10:30] VITALS: BMI 18.5
== END ==
LOC: AMB 15:49
PROVIDERS: ATTEND Nurse Practitioner
DX: R13.10 Dysphagia, unspecified (principal)
CPT/HCPCS: A0425; A0429

== ENCOUNTER → 2018-07-09 | Outpatient (CLI) | payer MEDICARE, MEDICAID ==
[2017-06-17 10:30] VITALS: BMI 18.5
[~2018-07-09] MED LIST changes: +BARIUM SULFATE 176 GM BTL PO ONE; +BARIUM SULFATE 340 GM POWD ONE
--- NOTE | 2018-07-09 16:00 | RADIOLOGY IMAGING REPORT ---
FACILITY: [facility] - [place] PATIENT NAME: Jane Winkler : 1945 MR: [id number] V: [id number] EXAM DATE: ORDERING PHYSICIAN: OSEI OLIVEIRA TECHNOLOGIST: [place] [facility] [place] Patient: Jane Winkler : 1945 Visit/Account:[id number] Date of Sevice: 07/09/2018 Exam type: ESOPHAGRAM History: Dysphasia Comparison: None. Findings: Preliminary health information technician film of the chest demonstrates hyperinflation of the lung dao. There is an impl anted left subclavian port distal tip projects over the superior vena cava. Esophagram was limited due to patient's limited mobility. The patient received air crystals. The pa tient then drank thin barium plane on the fluoroscopy table and a right lateral position. There is a prominent impression of upon the posterior aspect of the cervical esophagus likely related to cricop haryngeus muscle. The patient expressed difficulty in drinking the barium. There appear to be at le ast a mild narrowing of the lower esophageal sphincter. At least mild gastroesophageal reflux was ob served The fluoroscopy dose area product was 672.2 micro-Horan per meter squared IMPRESSION: 1. Limited study due to patient's limited mobility and difficulty in swallowing the barium. There w as a prominent impression upon the posterior aspect of the cervical esophagus likely related to crico pharyngeus muscle. There appear to be at least mild narrowing the lower esophageal sphincter and at least mild gastroeso phageal reflux Report Dictated By: Sabrina Banegas MD at 07/09/2018 3:51 PM Report E-Signed By: Sabrina Banegas MD at 07/09/2018 3:55 PM WSN:[id number]
== END ==
LOC: RAD 00:25
PROVIDERS: ATTEND Surgery
DX: K21.9 Gastro-esophageal reflux disease without esophagitis (principal); K22.2 Esophageal obstruction
CPT/HCPCS: 74220

== ENCOUNTER 2018-11-26 01:05 | Day surgery (SDC) | payer MEDICARE, MEDICAID ==
[2017-06-17 10:30] VITALS: Ht 157.5 cm; Wt 54.0 kg
[~2018-11-26] VITALS: Ht 157.5 cm; Wt 54.0 kg
[2018-11-26] VITALS (8 sets, daily range): BP systolic 91–118; BP diastolic 51–92
[~2018-11-26 01:05] MED LIST changes: -BARIUM SULFATE 176 GM BTL PO ONE; -BARIUM SULFATE 340 GM POWD ONE; +BENZ100C4 PO; +CHLO-172 PO; +CIPR-344 PO; +FLUO-202 PO; +METR500T15 PO; -METR500T54 PO; +MUPI15CR2 TP; +NYST15PO4 TP; +[UNRECOGNIZED DRUG - CODE] PO
[2018-11-26] MEDS ORDERED: PROPOFOL EMUL(*) 10MG/ML 20 ML 20 ML ONE (08:17)
[2018-11-26] MEDS ORDERED: DEXAMETHASONE SOD 4 MG/ML VIAL ONE (08:17)
[2018-11-26] MEDS ORDERED: fentaNYL CITR 100 MCG/2 ML AMP ONE (08:17)
[2018-11-26] MEDS ORDERED: ONDANSETRON 4 MG/2 ML VIAL ONE ×2 (08:17→11:05)
[2018-11-26] MEDS ORDERED: LIDOCAINE MPF 1% 5 ML VIAL ONE (08:17)
[2018-11-26] MEDS ORDERED: KETAMINE HCL 200 MG/20 ML MDV ONE (08:18)
[2018-11-26] MEDS ORDERED: SUGAMMADEX SOD 200 MG/2 ML SDV ONE (08:30)
[2018-11-26] MEDS ORDERED: LIDOCAINE 2% JELLY 30 ML TUBE ONE (10:08)
[2018-11-26] MEDS ORDERED: ROPIVACAINE 0.5% 20 ML VIAL ONE (10:08)
[2018-11-26] MEDS ORDERED: NORMOSOL R SOLN(*) 1000 ML BAG 1,000 ML IV PRN (10:15)
[2018-11-26] MEDS ORDERED: MIDAZOLAM 2 MG/2 ML VIAL IVP PRN (10:15)
[2018-11-26] MEDS ORDERED: FAMOTIDINE 20 MG TAB PO ONE (10:15)
[2018-11-26] MEDS ORDERED: LIDOCAINE/SOD BICARB 8.4% SYR ID ONE (10:15)
[2018-11-26] MEDS ORDERED: LIDO/EPI 1% MPF 1:200,000 30ML ONE (10:17)
--- NOTE | 2018-11-26 10:58 | NUR ---
PT. INTO STEPDOWN VIA BED. PROLONGED COUGHING NOTED. NO WHEEZING NOTED, MOVING AIRWAY WELL. SPO2 99% ON 10L OXY MASK. COPIOUS AMOUNTS OF SPUTUM. SUCTION UNAVAILABLE. PT. PLACED IN HIGH FOWLERS, BENT FORWARD AND ENCOURAGED TO REMOVE SPUTUM BY SPITTING. ABLE TO SUPPORT OWN AIRWAY AND EFFECTIVELY CLEAR SECRETIONS.
[2018-11-26] MEDS ORDERED: ALBUTEROL/IPRATROPIUM 3 ML NEB ONE (11:02)
--- NOTE | 2018-11-26 11:10 | NUR ---
THIERNO ORDERED. DR. PABLO REQUESTING DARLYN.
--- NOTE | 2018-11-26 11:15 | NUR ---
PT. GIVEN ZOFRAN. RT AT BEDSIDE. PT. ENCOURAGED TO DEEP BREATH. ASSURED PT. THAT SHE IS BREATHING WELL AND VITAL SIGNS NORMAL. NO CONCERNS.
--- NOTE | 2018-11-26 11:17 | Short(Outpt) Discharge Summary ---
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 (2) GERD (gastroesophageal reflux disease) Status: Chronic (3) Dysphagia Status: Chronic Departure Discharge to: Longterm Discharge Instructions Home Meds Active Scripts Magnesium Oxide (MAGNESIUM) 400 Mg Capsule, 400 MG PO DAILY, #30 CAPSULE 1 Refill Prov:CATA UREÑA MD 04/24/16 Levothyroxine Sodium (SYNTHROID) 75 Mcg Tablet, 0.075 MG PO QDAY@06, #30 TAB Prov:FREDDIE VOGT MD 04/19/16 Reported Medications Benzonatate 100 Mg Cap (TESSALON PERLE 100 MG CAP) 100 Mg Capsule, 100 MG PO TID, #15 CAP 11/23/18 Fluoxetine Hcl (PROZAC) 20 Mg Capsule, 20 MG PO QDAY, CAPSULE 11/23/18 Nystatin 100,000 Unit/Gm Top Powder (NYSTATIN 100,000 UNIT/GM TOP POWDER) 15 Gm Powder, 15 GM TP BID, TUBE 11/23/18 Mupirocin Lona 2% Cream (MUPIROCIN 2% CREAM) 15 Gm Cream..g., 0 TP QID, TUBE 11/23/18 Fexofenadine Hcl (ALLERGY RELIEF) 180 Mg Tablet, 400 MG PO PRN 11/23/18 Multivitamin (MULTIVITAMINS) 1 Each Capsule, 1 EACH PO, CAPSULE 11/23/18 Docusate Sodium (COLACE) 100 Mg Capsule, 100 MG PO BID, CAPSULE 11/23/18 Ciprofloxacin Hcl 500 Mg Tab (CIPRO 500 MG TAB) 500 Mg Tablet, 250 MG PO DAILY, TAB 11/23/18 Chlorpheniramine Maleate (CHLORPHENIRAMINE MALEATE) 4 Mg Tablet, 4 MG PO PRN 11/23/18 Diphenhydramine Hcl (BENADRYL ALLERGY) 25 Mg Tablet, 25 MG PO PRN, TAB 11/23/18 Ondansetron (ZOFRAN ODT) 4 Mg Tab.rapdis, 4 MG PO Q12H, TAB.TYRONE 11/20/17 Ranitidine Hcl (ZANTAC) 150 Mg Tablet, 150 MG PO QDAY, TAB 11/20/17 Loratadine (CLARITIN) 10 Mg Capsule, 10 MG PO, CAPSULE 11/20/17 Pantoprazole Sodium (PROTONIX) 40 Mg Granpkt.dr, 40 MG PO BID, PACK 06/23/17 Albuterol Sulfate 90 Mcg/Act (PROAIR HFA 90 MCG/ACT) 8.5 Gm Hfa.aer.ad, 1-2 PUFF IH Q2H PRN for SHORTNESS OF BREATH, INHALER 05/17/17 Oxycodone Hcl/Acetaminophen (OXYCODONE-ACETAMINOPHEN 5-325) 1 Each Tablet, 1 EACH PO Q4H PRN for PAIN, TAB 05/07/17 Ferrous Sulfate (IRON) 325 Mg Tablet, 325 MG PO BID 05/07/17 Hydroxyzine Hcl (HYDROXYZINE HCL) 25 Mg Tablet, 12.5 MG PO BID PRN for ITCHING 05/07/17 Magnesium Hydroxide (MILK OF MAGNESIA) 400 Mg/5 Ml Oral.susp, 800 MG PO BID, BOTTLE 05/07/17 Potassium Chloride (POTASSIUM CHLORIDE) 20 Meq/15 Ml Liquid, 20 MEQ PO BID 03/13/17 Acetaminophen (TYLENOL EXTRA STRENGTH) 500 Mg Tablet, 500 MG PO Q4H PRN for PAIN, TAB 03/13/17 Simethicone (SIMETHICONE) 80 Mg Tab.chew, 80 MG PO Q6H, TAB.CHEW 03/12/17 Fluticasone Prop 50 Mcg Ns (FLONASE 50 MCG NS) 16 Gm [place].susp, 1 SPRAY NS BID, BOT 03/27/16 Discontinued Reported Medications Nutritional Supplement (OSMOLITE) 237 Ml Liquid, 1000 ML FT QHS osmolyte 1.5 lona @ 70mL/hr x 12 hours 01/14/17 Follow up Referrals: General Surgery - 12/14/18 @ Surgery, General with OSEI OLIVEIRA MD You have a follow up appointment scheduled with Dr. Oliveira on 12/14/18, at 10:00am. Diet: Regular Activity: As Tolerated Special Instructions: Change the dressing on the PEG tube site daily until there's no drainage then leave open to air. Clear diet today, regular diet starting tomorrow. Problem Qualifiers (1) GERD (gastroesophageal reflux disease): Esophagitis presence: without esophagitis Qualified Codes: K21.9 - Gastro- esophageal reflux disease without esophagitis (2) Dysphagia: Dysphagia type: esophageal phase Qualified Codes: R13.10 - Dysphagia, unspecified OSIE OLIVEIRA MD Nov 26, 2018 11:17
--- NOTE | 2018-11-26 11:25 | Post Operative Progress Note ---
Post Operative Progress Note Date: Nov 26, 2018 Time: 11:18 Surgeon: Codi Dictation number: [id number] Anesthesia: TIVA by Dr. 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
--- NOTE | 2018-11-26 11:30 | NUR ---
RN AT BEDSIDE. GIVEN ICE CHIPS TO HELP SETTLE RESP. GIVEN HUMIDIFIED OXYGEN.
--- NOTE | 2018-11-26 11:50 | NUR ---
PT. REQUESTING PAIN PILL FOR LOWER BACK PAIN.
--- NOTE | 2018-11-26 11:58 | OPERATIVE REPORT 1 ---
EVENT DATE: November 26, 2018 SURGEON: Prakash Kincaid MD ANESTHESIOLOGIST: Sher Olson MD ANESTHESIA: TIVA PREOPERATIVE DIAGNOSIS 1. Dysphagia. 2. Gastrocutaneous fistula from a PEG tube. POSTOPERATIVE DIAGNOSIS 1. Dysphagia. 2. Gastrocutaneous fistula from a PEG tube. PROCEDURE PERFORMED 1. Esophagogastroduodenoscopy. 2 Balloon dilation of GE junction to 20 mm. 3. Endoscopic clipping of gastric side of gastrocutaneous fistula. 4. Suture closure of the cutaneous side of gastrocutaneous fistula. COMPLICATIONS None. CONDITION Stable. ESTIMATED BLOOD LOSS Minimal. FINDINGS The patient had a severe stricture of the GE junction that was down to about 5 mm in diameter. I could not initially pass the scope. I dilated it to 20 mm with the balloon and then was able to pass the scope into the stomach where I did see the gastric side of the gastrocutaneous fistula. She was venting gastric carbon dioxide from the insufflation during this procedure until I sutured the fistula shut. INDICATIONS This is a 73-year-old female who I have been caring for for the last couple of years off and on for various GI issues including a PEG tube placement a couple of years ago due to poor intake with malnutrition, but ultimately this was removed last year and she has had intermittent drainage from the PEG tube site, it seems like it will heal, but then she will start having expulsion of gastric juices through the site. She and her ex-, who is her power of assistant district attorney, are requesting to have this addressed and so I discussed attempting to address it endoscopically. They would like to proceed with this procedure. DESCRIPTION OF PROCEDURE The patient was brought to the operating room and placed supine on the operating table. TIVA anesthesia was administered and the endoscope was tested and insured it was completely functional and inserted in her mouth through the bite block and then advanced into the esophagus, all the way down to the distal esophagus where I noticed the stricture which she has had previously, but has been previously dilated and was now back to basically the size it was prior to the previous dilation. I was unable to pass the scope into the stomach with the stricture present, so I obtained a balloon and dilated the stricture sequentially ultimately to 20 mm without problems. I then advanced the scope into the stomach and identified the gastric side of the gastrocutaneous fistula. As I was insufflating the stomach, I could hear the gas escaping from the cutaneous side of the gastrocutaneous fistula. I then prepped the abdominal wall with Betadine and anesthetized around the opening of the gastrocutaneous fistula with 1% lidocaine with epinephrine and then I debrided the tract mostly with electrocautery to try to generate an inflammatory reaction to promote healing and then I placed a [id number] suture right around the gastrocutaneous fistula with an 0 Prolene suture and tied this down and there was no further venting of the insufflation gas. Internally, with the camera focused on the opening of the gastrocutaneous fistula, I placed 3 Endoclips on the mucosal side to try to reapproximate here. After this was completed, the scope was withdrawn and she was brought to the recovery area in good condition having tolerated this procedure without any apparent problems. TERESA
--- NOTE | 2018-11-26 13:38 | NUR ---
RN into room to check on pt. vss. States she has a ANGELO and ST. Informed pt. that ANGELO likely from [facility] and ST is to be expected. pt. medicated with Percocet at 12:15. requesting extra strength APAP. Was given APAP this morning.
== END 2018-11-26 15:15 | disposition home or self-care (01) ==
LOC: OR 01:05
PROVIDERS: ATTEND Surgery
DX: K31.6 Fistula of stomach and duodenum (principal); R13.10 Dysphagia, unspecified; J45.998 Other asthma
CPT/HCPCS: 43249; 43999; 94640; A9270; J2001; J2405; J2704; J3490; J7620; C1726; J1100; J2795; J3010